=== PATIENT | male | born 1970 | race American Indian/Alaskan Native ===

== ENCOUNTER 2017-11-12 17:40 | Emergency (ER) | payer MEDICAID ==
[~2017-11-12] VITALS: Ht 170.2 cm; Wt 57.0 kg
[~2017-11-12 17:40] MED LIST: DOCU-28 PO; FLUC100T9 PO; FLUO40CA10 PO; FURO-150 PO; HYDR-3972 PO; INSU100I5 SQ; LEVO750T46 PO; LIDO700A35 TOP; METO50TA17 PO; NEOM14.216 TP; POTA10TA36 PO; TAMS0.4C32 PO
[2017-11-12 20:23] LABS: BASOPHILS % (AUTO) 0.2 % (0-1); EOSINOPHILS # (AUTO) 0.2 X10'3 (0-0.9); EOSINOPHILS % (AUTO) 2.7 % (0-6); HEMOGLOBIN 10.6 g/dl (14.0-17.9); LYMPHOCYTES # (AUTO) 1.2 X10'3 (1.1-4.8); LYMPHOCYTES % (AUTO) 18.2 % (21-51); MEAN CORPUSCULAR HEMOGLOBIN 27.7 PG (27.0-31.0); MEAN CORPUSCULAR HGB CONC 33.1 % (33.0-36.5); MEAN CORPUSCULAR VOLUME 83.8 FL (78-98); MEAN PLATELET VOLUME 5.9 FL (7.4-10.4); MONOCYTES # (AUTO) 0.5 X10'3 (0-0.9); NEUTROPHILS # (AUTO) 4.9 X10'3 (1.8-7.7); NEUTROPHILS % (AUTO) 71.9 % (42-75); PLATELET COUNT 244 X10'3 (140-440); RED BLOOD COUNT 3.81 X10'6 (4.70-6.10); RED CELL DISTRIBUTION WIDTH 16.2 % (11.5-14.5); WHITE BLOOD COUNT 6.8 X10'3 (4.5-11.0)
[2017-11-12 20:32] LABS: INR 1.1 INR; PARTIAL THROMBOPLASTIN TIME 31 SECONDS (22-32); PROTHROMBIN TIME 11.3 SECONDS (9.0-12.0)
[2017-11-12 20:36] LABS: ALANINE AMINOTRANSFERASE 48 U/L (12-78); ALBUMIN/GLOBULIN RATIO 0.3 (1.1-1.5); ALKALINE PHOSPHATASE 236 IU/L (46-116); ANION GAP 6 (8-16); ASPARTATE AMINO TRANSFERASE 46 U/L (10-37); BILIRUBIN,TOTAL 0.3 MG/DL (0.1-1.0); BLOOD UREA NITROGEN 23 MG/DL (7-18); BUN/CREATININE RATIO 6.9 (5.4-32.0); CALCIUM 7.9 MG/DL (8.5-10.1); CHLORIDE 104 MMOL/L (99-107); CREATININE 3.33 MG/DL (0.60-1.10); GLUCOSE 142 MG/DL (70-104); POTASSIUM 3.9 MMOL/L (3.5-5.1); SODIUM 135 MMOL/L (135-145); TOTAL CARBON DIOXIDE 25.4 MMOL/L (24-32); TOTAL PROTEIN 8.3 G/DL (6.4-8.2); eGFR 20 ML/MIN
[2017-11-12 20:44] LABS: CLARITY,URINE CLEAR (Clear); COLOR,URINE YELLOW (Yellow); GLUCOSE, URINE 250 mg/dl (Neg); KETONES,URINE NEGATIVE (Neg); LEUKOCYTE ESTERASE ,URINE NEGATIVE (Neg); NITRITES, URINE NEGATIVE (Neg); OCCULT BLOOD,URINE MODERATE (Neg); PROTEIN,URINE >=300 mg/dl (Neg); UROBILINOGEN,URINE 0.2 E.U/dL (0.2-1.0)
[2017-11-12 20:45] LABS: MAGNESIUM 2.1 MG/DL (1.5-2.4); TROPONIN I < 0.04 NG/ML (0.0-0.05)
[2017-11-12 20:46] LABS: UA COLLECTION TYPE FOLEY CATH
[2017-11-12 20:56] LABS: BACTERIA,URINE NONE SEEN /HPF (Neg); WBC,URINE 0-4 /HPF (0-4)
[2017-11-12 20:57] LABS: SQUAMOUS EPITHELIAL CELL,UR NONE SEEN /LPF (FEW); YEAST MODERATE /HPF (NEGATIVE)
[2017-11-12 21:38] VITALS: BP 161/85
== END 2017-11-12 21:40 | disposition home or self-care (01) ==
LOC: ER 17:40
DX: G89.29 Other chronic pain (principal); M79.604 Pain in right leg; E11.22 Type 2 diabetes mellitus with diabetic chronic kidney disease; I12.0 Hypertensive chronic kidney disease with stage 5 chronic kidney disease or end stage renal disease; N18.6 End stage renal disease; R31.9 Hematuria, unspecified; F15.10 Other stimulant abuse, uncomplicated; Z91.14 Patient's other noncompliance with medication regimen; Z99.2 Dependence on renal dialysis; Z86.19 Personal history of other infectious and parasitic diseases; Z90.49 Acquired absence of other specified parts of digestive tract; Z98.890 Other specified postprocedural states; Z79.4 Long term (current) use of insulin; Z79.899 Other long term (current) drug therapy; Z59.0 Homelessness; Z56.0 Unemployment, unspecified; Z88.8 Allergy status to other drugs, medicaments and biological substances
CPT/HCPCS: 36415; 71045; 80053; 81001; 82948; 83605; 83735; 83880; 84145; 84484; 85025; 85610; 85730; 87040; 93005; 99285

== ENCOUNTER 2017-11-24 09:53 | Inpatient (IN) | payer MEDICAID ==
[~2017-11-24] VITALS: Ht 170.2 cm; Wt 45.6 kg
[2017-11-24] MEDS ORDERED: ondansetron/PF 4mg/2ml inj IV ONE ×2 (12:45→17:10)
[2017-11-24] MEDS ORDERED: morphine 2 MG/ML inj. syringe IV ONE ×2 (12:45→17:15)
[2017-11-24 13:40] LABS: BASOPHILS % (AUTO) 0.4 % (0-1); EOSINOPHILS # (AUTO) 0.1 X10'3 (0-0.9); EOSINOPHILS % (AUTO) 1.9 % (0-6); HEMATOCRIT 34.6 % (42.0-52.0); HEMOGLOBIN 11.5 g/dl (14.0-17.9); LYMPHOCYTES # (AUTO) 1.8 X10'3 (1.1-4.8); LYMPHOCYTES % (AUTO) 22.6 % (21-51); MEAN CORPUSCULAR HEMOGLOBIN 27.5 PG (27.0-31.0); MEAN CORPUSCULAR HGB CONC 33.1 % (33.0-36.5); MEAN PLATELET VOLUME 6.5 FL (7.4-10.4); MONOCYTES # (AUTO) 0.4 X10'3 (0-0.9); MONOCYTES % (AUTO) 4.7 % (2-12); NEUTROPHILS # (AUTO) 5.6 X10'3 (1.8-7.7); NEUTROPHILS % (AUTO) 70.4 % (42-75); PLATELET COUNT 213 X10'3 (140-440); RED BLOOD COUNT 4.17 X10'6 (4.70-6.10); RED CELL DISTRIBUTION WIDTH 18.7 % (11.5-14.5); WHITE BLOOD COUNT 7.9 X10'3 (4.5-11.0)
[2017-11-24 14:06] LABS: ALANINE AMINOTRANSFERASE 44 U/L (12-78); ALBUMIN 1.9 G/DL (3.4-5.0); ALBUMIN/GLOBULIN RATIO 0.3 (1.1-1.5); ALKALINE PHOSPHATASE 244 IU/L (46-116); ANION GAP 4 (8-16); ASPARTATE AMINO TRANSFERASE 33 U/L (10-37); BILIRUBIN,TOTAL 0.3 MG/DL (0.1-1.0); BLOOD UREA NITROGEN 20 MG/DL (7-18); BUN/CREATININE RATIO 6.7 (5.4-32.0); CALCIUM 7.1 MG/DL (8.5-10.1); CHLORIDE 105 MMOL/L (99-107); GLUCOSE 263 MG/DL (70-104); LIPASE < 50 U/L (73-393); SODIUM 134 MMOL/L (135-145); TOTAL CARBON DIOXIDE 25.2 MMOL/L (24-32); TOTAL PROTEIN 7.9 G/DL (6.4-8.2); eGFR 23 ML/MIN
[2017-11-24 14:07] LABS: POTASSIUM 6.6 MMOL/L (3.5-5.1)
[2017-11-24] MEDS ORDERED: calcium gluconate inj. 1 GM in normal saline 100ml IV soln 90 ML IV ONE (14:30)
[2017-11-24] MEDS ORDERED: sodium polystyrene sulfonate 15gm/60ml oral suspension PO ONE (14:30)
[2017-11-24] MEDS ORDERED: dextrose 50%-water 50ml dispensing syringe IV ONE (14:30)
[2017-11-24] MEDS ORDERED: insulin regular, human 10 units/0.1 ml syringe IV ONE (14:30)
[2017-11-24] MEDS ORDERED: LORazepam 2 mg/ml vial IV ONE ×2 (15:05→18:10)
[2017-11-24 16:56] LABS: CLARITY,URINE SLIGHTLY CLOUDY (Clear); COLOR,URINE YELLOW (Yellow); GLUCOSE, URINE 250 mg/dl (Neg); KETONES,URINE NEGATIVE (Neg); LEUKOCYTE ESTERASE ,URINE NEGATIVE (Neg); NITRITES, URINE NEGATIVE (Neg); OCCULT BLOOD,URINE LARGE (Neg); PROTEIN,URINE >=300 mg/dl (Neg); UROBILINOGEN,URINE 0.2 E.U/dL (0.2-1.0)
[2017-11-24 16:58] LABS: UA COLLECTION TYPE FOLEY CATH
[2017-11-24 17:02] LABS: WBC,URINE 0-4 /HPF (0-4)
[2017-11-24 17:03] LABS: BACTERIA,URINE NONE SEEN /HPF (Neg); RBC,URINE 20-50 /HPF (0-2); SQUAMOUS EPITHELIAL CELL,UR FEW /LPF (FEW)
[2017-11-24] MEDS ORDERED: morphine 5 MG/ML injection IV ONE (17:10)
[2017-11-24 20:51] LABS: POTASSIUM 5.5 MMOL/L (3.5-5.1)
[2017-11-24] MEDS ORDERED: labetalol 20mg/4ml (5mg/ml) syringe IV ONE (22:45)
[2017-11-24] MEDS ORDERED: levoFLOXACIN-Levaquin 750MG/D5 150 ML IV STA (23:37)
[2017-11-24] MEDS ORDERED: vancomycin/NS 1 GM ADD-VANTAGE 250 ML IV ONE (23:40)
[2017-11-25] MEDS ORDERED: labetalol 5mg/ml 20ml inj. IV STA (00:09)
[2017-11-25 00:13] LABS: INR 1.2 INR; PARTIAL THROMBOPLASTIN TIME 31 SECONDS (22-32)
[2017-11-25] MEDS ORDERED: morphine 2 MG/ML inj. syringe IV PRN ×2 (00:35)
[2017-11-25 01:20] VITALS: BP 155/102
[2017-11-25 01:20] LABS: BASOPHILS % (AUTO) 0.5 % (0-1); EOSINOPHILS # (AUTO) 0.3 X10'3 (0-0.9); EOSINOPHILS % (AUTO) 4.1 % (0-6); HEMOGLOBIN 9.6 g/dl (14.0-17.9); LYMPHOCYTES # (AUTO) 2.3 X10'3 (1.1-4.8); LYMPHOCYTES % (AUTO) 32.6 % (21-51); MEAN CORPUSCULAR HEMOGLOBIN 28.2 PG (27.0-31.0); MEAN CORPUSCULAR HGB CONC 34.2 % (33.0-36.5); MEAN CORPUSCULAR VOLUME 82.5 FL (78-98); MEAN PLATELET VOLUME 6.7 FL (7.4-10.4); MONOCYTES # (AUTO) 0.7 X10'3 (0-0.9); NEUTROPHILS # (AUTO) 3.6 X10'3 (1.8-7.7); NEUTROPHILS % (AUTO) 52.8 % (42-75); PLATELET COUNT 164 X10'3 (140-440); RED BLOOD COUNT 3.39 X10'6 (4.70-6.10); RED CELL DISTRIBUTION WIDTH 19.3 % (11.5-14.5); WHITE BLOOD COUNT 6.9 X10'3 (4.5-11.0)
[2017-11-25 01:31] LABS: ALANINE AMINOTRANSFERASE 52 U/L (12-78); ALBUMIN 1.5 G/DL (3.4-5.0); ALBUMIN/GLOBULIN RATIO 0.3 (1.1-1.5); ALKALINE PHOSPHATASE 227 IU/L (46-116); ANION GAP 4 (8-16); ASPARTATE AMINO TRANSFERASE 73 U/L (10-37); BILIRUBIN,TOTAL 0.2 MG/DL (0.1-1.0); BLOOD UREA NITROGEN 21 MG/DL (7-18); BUN/CREATININE RATIO 6.8 (5.4-32.0); CHLORIDE 108 MMOL/L (99-107); GLUCOSE 93 MG/DL (70-104); MAGNESIUM 1.7 MG/DL (1.5-2.4); POTASSIUM 5.5 MMOL/L (3.5-5.1); SODIUM 138 MMOL/L (135-145); TOTAL PROTEIN 6.5 G/DL (6.4-8.2); eGFR 22 ML/MIN
[2017-11-25 06:00] VITALS: BP 126/87
[2017-11-25] MEDS: potassium chloride 10mEq ER tablet PO SCH (07:03)
[2017-11-25] MEDS: VANCOMYCIN LEVEL IV SCH (08:00)
[2017-11-25] MEDS: metoprolol tartrate 50mg tablet PO SCH ×2 (08:00→20:28)
[2017-11-25] MEDS ORDERED: furosemide 20MG tablet PO SCH (08:00)
[2017-11-25] MEDS: docusate sod 100mg capsule PO SCH ×2 (08:00→20:28)
[2017-11-25] MEDS ORDERED: vancomycin/NS 1 GM ADD-VANTAGE 250 ML X 1 DOSE IV PRN (08:00)
[2017-11-25] MEDS: neomy sulf/bacitrac zn/polymixin b oint 14.2 gm tube TP SCH ×2 (08:00→20:00)
[2017-11-25] MEDS ORDERED: dextrose 50%-water 50ml dispensing syringe IV PRN ×2 (08:10)
[2017-11-25] MEDS ORDERED: glucagon, human recombinant 1mg kit SUBCUT PRN (08:10)
[2017-11-25] MEDS ORDERED: dextrose ORAL solution 15 GM/59 ML bottle PO PRN (08:10)
[2017-11-25] MEDS: heparin, porcine 5000 units/ml vial SQ SCH ×2 (08:16→20:27)
[2017-11-25] MEDS: LIDOcaine 5% patch TP SCH (08:21)
[2017-11-25 09:02] LABS: VANCOMYCIN,RANDOM 7.2 UG/ML
[2017-11-25] MEDS: insulin Lispro (HumaLOG) vial - multi-dose SQ SCH ×2 (09:11→13:31)
[2017-11-25] MEDS ORDERED: vancomycin/NS 1 GM ADD-VANTAGE 250 ML X 1 DOSE IV ONE (09:45)
[2017-11-25] MEDS: HYDROmorphone inj. 0.5 MG/0.5 ML DISP.SYRIN IV PRN ×2 (10:45→14:45)
[2017-11-25 11:00] VITALS: BP 137/93
[2017-11-25] MEDS ORDERED: heparin 1,000unit/ml 10ml vial 10 ML IV ONE (11:07)
[2017-11-25] MEDS ORDERED: epoetin 20,000 units/ml inj IV ONE (11:10)
[2017-11-25] MEDS ORDERED: heparin 1,000 units/ml 10ml inj IV ONE (11:10)
[2017-11-25] MEDS ORDERED: albumin (human) 25% 100ml IV 100 ML IV PRN (11:10)
[2017-11-25] MEDS ORDERED: heparin 1,000 units/ml 10ml inj HE ONE ×2 (11:15)
[2017-11-25] MEDS ORDERED: INSU100I5 SQ (12:12)
[2017-11-25 15:00] VITALS: BP 121/88
[2017-11-25] MEDS: dextrose ORAL solution 15 GM/59 ML bottle PO PRN ×2 (17:06→17:31)
[2017-11-25 18:30] VITALS: BP 164/93
[2017-11-25] MEDS: morphine 2 MG/ML inj. syringe IV PRN ×2 (18:49→23:03)
[2017-11-25] MEDS: tamsulosin 0.4mg capsule PO SCH (20:28)
[2017-11-25] MEDS: insulin glargine (Lantus) pen - multi-dose SQ SCH (21:00)
[2017-11-25] MEDS: diatr meglu/diatrizoate 30ml oral sol.-(3 dose) bottle PO SCH (21:57)
[2017-11-25 22:00] VITALS: BP 149/85
[2017-11-26 02:00] VITALS: BP 156/94
[2017-11-26] MEDS: VANCOMYCIN LEVEL IV SCH (03:00)
[2017-11-26] MEDS: morphine 8mg/ml inj. syringe IV PRN ×3 (04:54→17:24)
[2017-11-26 06:00] VITALS: BP 152/88
[2017-11-26 06:10] LABS: BASOPHILS % (AUTO) 0.4 % (0-1); EOSINOPHILS # (AUTO) 0.3 X10'3 (0-0.9); HEMATOCRIT 25.4 % (42.0-52.0); HEMOGLOBIN 8.7 g/dl (14.0-17.9); LYMPHOCYTES % (AUTO) 29.3 % (21-51); MEAN CORPUSCULAR HEMOGLOBIN 28.1 PG (27.0-31.0); MEAN CORPUSCULAR HGB CONC 34.2 % (33.0-36.5); MEAN CORPUSCULAR VOLUME 81.9 FL (78-98); MEAN PLATELET VOLUME 6.3 FL (7.4-10.4); MONOCYTES # (AUTO) 0.8 X10'3 (0-0.9); MONOCYTES % (AUTO) 12.3 % (2-12); NEUTROPHILS # (AUTO) 3.6 X10'3 (1.8-7.7); PLATELET COUNT 159 X10'3 (140-440); RED CELL DISTRIBUTION WIDTH 20.1 % (11.5-14.5); WHITE BLOOD COUNT 6.9 X10'3 (4.5-11.0)
[2017-11-26 06:35] LABS: GLUCOSE 155 MG/DL (70-104); SODIUM 137 MMOL/L (135-145)
[2017-11-26 06:36] LABS: ALANINE AMINOTRANSFERASE 34 U/L (12-78); ALBUMIN 1.4 G/DL (3.4-5.0); ALBUMIN/GLOBULIN RATIO 0.3 (1.1-1.5); ALKALINE PHOSPHATASE 193 IU/L (46-116); ANION GAP 4 (8-16); ASPARTATE AMINO TRANSFERASE 28 U/L (10-37); BILIRUBIN,TOTAL 0.2 MG/DL (0.1-1.0); BLOOD UREA NITROGEN 11 MG/DL (7-18); BUN/CREATININE RATIO 4.8 (5.4-32.0); CALCIUM 6.6 MG/DL (8.5-10.1); CHLORIDE 105 MMOL/L (99-107); MAGNESIUM 1.5 MG/DL (1.5-2.4); POTASSIUM 4.2 MMOL/L (3.5-5.1); TOTAL CARBON DIOXIDE 27.9 MMOL/L (24-32); VANCOMYCIN,RANDOM 24.6 UG/ML; eGFR 31 ML/MIN
[2017-11-26] MEDS: diatr meglu/diatrizoate 30ml oral sol.-(3 dose) bottle PO SCH ×2 (07:57→21:00)
[2017-11-26] MEDS: heparin, porcine 5000 units/ml vial SQ SCH ×2 (07:58→21:46)
[2017-11-26] MEDS: docusate sod 100mg capsule PO SCH ×2 (08:00→21:46)
[2017-11-26] MEDS: metoprolol tartrate 50mg tablet PO SCH ×2 (08:01→21:46)
[2017-11-26] MEDS: neomy sulf/bacitrac zn/polymixin b oint 14.2 gm tube TP SCH ×2 (08:01→20:00)
[2017-11-26] MEDS: potassium chloride 10mEq ER tablet PO SCH (08:01)
[2017-11-26] MEDS: LIDOcaine 5% patch TP SCH (08:02)
[2017-11-26] MEDS: LACTOBACILLUS RHAMNOSUS GG 15 billion unit sprinkle caps PO SCH (08:03)
[2017-11-26] MEDS: furosemide 20MG tablet PO SCH (08:13)
[2017-11-26] MEDS ORDERED: iohexol 300mg/ml 100ml inj. ONE (09:07)
[2017-11-26 11:00] VITALS: BP 145/90
[2017-11-26 15:00] VITALS: BP 146/97
[2017-11-26 19:00] VITALS: BP 149/100
[2017-11-26] MEDS: insulin glargine (Lantus) pen - multi-dose SQ SCH (21:00)
[2017-11-26] MEDS: tamsulosin 0.4mg capsule PO SCH (21:46)
[2017-11-26] MEDS: levoFLOXACIN-Levaquin 500mg/D5 100 ML IV SCH (21:48)
[2017-11-26 23:00] VITALS: BP 156/95
[2017-11-27 03:00] VITALS: BP 168/97
[2017-11-27] MEDS: VANCOMYCIN LEVEL IV SCH (03:00)
[2017-11-27] MEDS ORDERED: morphine 2 MG/ML inj. syringe IV ONE (03:35)
[2017-11-27 06:00] VITALS: BP 143/90
[2017-11-27] MEDS: LACTOBACILLUS RHAMNOSUS GG 15 billion unit sprinkle caps PO SCH (07:31)
[2017-11-27] MEDS: potassium chloride 10mEq ER tablet PO SCH (07:31)
[2017-11-27] MEDS: metoprolol tartrate 50mg tablet PO SCH ×2 (07:31→19:43)
[2017-11-27] MEDS: heparin, porcine 5000 units/ml vial SQ SCH ×2 (07:31→19:43)
[2017-11-27] MEDS: furosemide 20MG tablet PO SCH (07:31)
[2017-11-27] MEDS: LIDOcaine 5% patch TP SCH (07:32)
[2017-11-27] MEDS: neomy sulf/bacitrac zn/polymixin b oint 14.2 gm tube TP SCH ×2 (07:33→19:43)
[2017-11-27] MEDS: docusate sod 100mg capsule PO SCH ×2 (07:41→19:44)
[2017-11-27] MEDS ORDERED: heparin 1,000unit/ml 10ml vial 10 ML IV ONE (08:32)
[2017-11-27] MEDS ORDERED: epoetin 20,000 units/ml inj IV ONE (08:35)
[2017-11-27] MEDS ORDERED: albumin (human) 25% 100ml IV 100 ML IV PRN (08:35)
[2017-11-27] MEDS ORDERED: heparin 1,000 units/ml 10ml inj IV ONE (08:35)
[2017-11-27] MEDS ORDERED: heparin 1,000 units/ml 10ml inj HE ONE ×2 (08:40)
[2017-11-27] MEDS: insulin Lispro (HumaLOG) vial - multi-dose SQ SCH (09:39)
[2017-11-27 11:00] VITALS: BP 131/91
[2017-11-27] MEDS: dextrose ORAL solution 15 GM/59 ML bottle PO PRN (12:00)
[2017-11-27 12:36] LABS: BASOPHILS % (AUTO) 0.6 % (0-1); EOSINOPHILS # (AUTO) 0.5 X10'3 (0-0.9); EOSINOPHILS % (AUTO) 6.6 % (0-6); HEMATOCRIT 27.9 % (42.0-52.0); HEMOGLOBIN 9.5 g/dl (14.0-17.9); LYMPHOCYTES # (AUTO) 1.7 X10'3 (1.1-4.8); LYMPHOCYTES % (AUTO) 24.4 % (21-51); MEAN CORPUSCULAR HEMOGLOBIN 28.1 PG (27.0-31.0); MEAN CORPUSCULAR HGB CONC 33.9 % (33.0-36.5); MEAN CORPUSCULAR VOLUME 82.8 FL (78-98); MEAN PLATELET VOLUME 6.7 FL (7.4-10.4); MONOCYTES # (AUTO) 0.7 X10'3 (0-0.9); MONOCYTES % (AUTO) 10.5 % (2-12); NEUTROPHILS # (AUTO) 4.1 X10'3 (1.8-7.7); NEUTROPHILS % (AUTO) 57.9 % (42-75); PLATELET COUNT 163 X10'3 (140-440); RED BLOOD COUNT 3.37 X10'6 (4.70-6.10); RED CELL DISTRIBUTION WIDTH 19.9 % (11.5-14.5); WHITE BLOOD COUNT 7.1 X10'3 (4.5-11.0)
[2017-11-27 12:44] LABS: ALANINE AMINOTRANSFERASE 33 U/L (12-78); ALBUMIN 1.5 G/DL (3.4-5.0); ALBUMIN/GLOBULIN RATIO 0.3 (1.1-1.5); ALKALINE PHOSPHATASE 231 IU/L (46-116); ANION GAP 3 (8-16); ASPARTATE AMINO TRANSFERASE 29 U/L (10-37); BILIRUBIN,TOTAL 0.2 MG/DL (0.1-1.0); BLOOD UREA NITROGEN 22 MG/DL (7-18); BUN/CREATININE RATIO 6.9 (5.4-32.0); CHLORIDE 103 MMOL/L (99-107); MAGNESIUM 1.5 MG/DL (1.5-2.4); POTASSIUM 4.7 MMOL/L (3.5-5.1); SODIUM 136 MMOL/L (135-145); TOTAL CARBON DIOXIDE 29.9 MMOL/L (24-32); TOTAL PROTEIN 6.6 G/DL (6.4-8.2); VANCOMYCIN,RANDOM 20.6 UG/ML; eGFR 21 ML/MIN
[2017-11-27 12:46] LABS: GLUCOSE 39 MG/DL (70-104)
[2017-11-27 13:24] LABS: HBSAG SCREEN Negative (Negative)
[2017-11-27] MEDS: morphine 2 MG/ML inj. syringe IV PRN ×2 (13:52→19:44)
[2017-11-27 15:00] VITALS: BP 146/89
[2017-11-27 19:00] VITALS: BP 157/83
[2017-11-27] MEDS: tamsulosin 0.4mg capsule PO SCH (19:43)
[2017-11-27] MEDS: insulin glargine (Lantus) pen - multi-dose SQ SCH (21:00)
[2017-11-27 23:00] VITALS: BP 126/71
[2017-11-28 03:00] VITALS: BP 153/55
[2017-11-28] MEDS: VANCOMYCIN LEVEL IV SCH (03:00)
[2017-11-28 06:00] VITALS: BP 141/75
[2017-11-28 06:39] LABS: BASOPHILS % (AUTO) 0.4 % (0-1); EOSINOPHILS # (AUTO) 0.4 X10'3 (0-0.9); EOSINOPHILS % (AUTO) 5.2 % (0-6); HEMATOCRIT 26.7 % (42.0-52.0); LYMPHOCYTES # (AUTO) 2.2 X10'3 (1.1-4.8); LYMPHOCYTES % (AUTO) 26.8 % (21-51); MEAN CORPUSCULAR HEMOGLOBIN 27.7 PG (27.0-31.0); MEAN CORPUSCULAR HGB CONC 33.6 % (33.0-36.5); MEAN CORPUSCULAR VOLUME 82.5 FL (78-98); MEAN PLATELET VOLUME 7.1 FL (7.4-10.4); MONOCYTES # (AUTO) 1.1 X10'3 (0-0.9); MONOCYTES % (AUTO) 12.9 % (2-12); NEUTROPHILS # (AUTO) 4.5 X10'3 (1.8-7.7); NEUTROPHILS % (AUTO) 54.7 % (42-75); PLATELET COUNT 153 X10'3 (140-440); RED BLOOD COUNT 3.24 X10'6 (4.70-6.10); RED CELL DISTRIBUTION WIDTH 19.6 % (11.5-14.5); WHITE BLOOD COUNT 8.3 X10'3 (4.5-11.0)
[2017-11-28 07:14] LABS: ALANINE AMINOTRANSFERASE 29 U/L (12-78); ALBUMIN 1.4 G/DL (3.4-5.0); ALBUMIN/GLOBULIN RATIO 0.3 (1.1-1.5); ALKALINE PHOSPHATASE 192 IU/L (46-116); ANION GAP 4 (8-16); ASPARTATE AMINO TRANSFERASE 23 U/L (10-37); BILIRUBIN,TOTAL 0.2 MG/DL (0.1-1.0); BLOOD UREA NITROGEN 19 MG/DL (7-18); BUN/CREATININE RATIO 6.6 (5.4-32.0); CALCIUM 6.8 MG/DL (8.5-10.1); CHLORIDE 102 MMOL/L (99-107); GLUCOSE 186 MG/DL (70-104); MAGNESIUM 1.6 MG/DL (1.5-2.4); POTASSIUM 4.7 MMOL/L (3.5-5.1); SODIUM 134 MMOL/L (135-145); TOTAL CARBON DIOXIDE 27.9 MMOL/L (24-32); TOTAL PROTEIN 6.2 G/DL (6.4-8.2); VANCOMYCIN,RANDOM 14.6 UG/ML; eGFR 24 ML/MIN
[2017-11-28] MEDS: LIDOcaine 5% patch TP SCH (07:38)
[2017-11-28] MEDS: metoprolol tartrate 50mg tablet PO SCH ×2 (07:38→19:27)
[2017-11-28] MEDS: furosemide 20MG tablet PO SCH (07:38)
[2017-11-28] MEDS: heparin, porcine 5000 units/ml vial SQ SCH ×2 (07:38→19:27)
[2017-11-28] MEDS: docusate sod 100mg capsule PO SCH ×2 (07:39→19:27)
[2017-11-28] MEDS: potassium chloride 10mEq ER tablet PO SCH (07:39)
[2017-11-28] MEDS: neomy sulf/bacitrac zn/polymixin b oint 14.2 gm tube TP SCH ×2 (07:48→19:28)
[2017-11-28] MEDS: LACTOBACILLUS RHAMNOSUS GG 15 billion unit sprinkle caps PO SCH (07:48)
[2017-11-28] MEDS: morphine 2 MG/ML inj. syringe IV PRN ×4 (07:49→22:03)
[2017-11-28] MEDS ORDERED: vancomycin/NS 1 GM ADD-VANTAGE 250 ML X 1 DOSE IV ONE (10:55)
[2017-11-28 11:00] VITALS: BP 150/84
[2017-11-28] MEDS: insulin Lispro (HumaLOG) vial - multi-dose SQ SCH ×2 (14:28→19:35)
[2017-11-28 15:00] VITALS: BP 146/83
[2017-11-28 19:00] VITALS: BP 136/86
[2017-11-28] MEDS: tamsulosin 0.4mg capsule PO SCH (19:27)
[2017-11-28] MEDS: insulin glargine (Lantus) pen - multi-dose SQ SCH (19:43)
[2017-11-28] MEDS: levoFLOXACIN-Levaquin 500mg/D5 100 ML IV SCH (22:03)
[2017-11-28 23:00] VITALS: BP 136/87
[2017-11-29] MEDS: morphine 2 MG/ML inj. syringe IV PRN ×4 (02:04→20:09)
[2017-11-29 03:00] VITALS: BP 154/86
[2017-11-29] MEDS: VANCOMYCIN LEVEL IV SCH (03:00)
[2017-11-29 06:00] VITALS: BP 139/91
[2017-11-29 07:13] LABS: BASOPHILS % (AUTO) 0.5 % (0-1); EOSINOPHILS # (AUTO) 0.5 X10'3 (0-0.9); EOSINOPHILS % (AUTO) 6.8 % (0-6); HEMATOCRIT 25.5 % (42.0-52.0); HEMOGLOBIN 8.6 g/dl (14.0-17.9); LYMPHOCYTES # (AUTO) 2.2 X10'3 (1.1-4.8); LYMPHOCYTES % (AUTO) 30.1 % (21-51); MEAN CORPUSCULAR HEMOGLOBIN 27.7 PG (27.0-31.0); MEAN CORPUSCULAR HGB CONC 33.6 % (33.0-36.5); MEAN CORPUSCULAR VOLUME 82.5 FL (78-98); MONOCYTES # (AUTO) 0.7 X10'3 (0-0.9); MONOCYTES % (AUTO) 10.1 % (2-12); NEUTROPHILS # (AUTO) 3.9 X10'3 (1.8-7.7); NEUTROPHILS % (AUTO) 52.5 % (42-75); PLATELET COUNT 158 X10'3 (140-440); RED CELL DISTRIBUTION WIDTH 19.2 % (11.5-14.5); WHITE BLOOD COUNT 7.3 X10'3 (4.5-11.0)
[2017-11-29 07:34] LABS: ALANINE AMINOTRANSFERASE 25 U/L (12-78); ALBUMIN 1.4 G/DL (3.4-5.0); ALBUMIN/GLOBULIN RATIO 0.3 (1.1-1.5); ALKALINE PHOSPHATASE 168 IU/L (46-116); ANION GAP 6 (8-16); ASPARTATE AMINO TRANSFERASE 22 U/L (10-37); BILIRUBIN,TOTAL 0.2 MG/DL (0.1-1.0); BLOOD UREA NITROGEN 29 MG/DL (7-18); BUN/CREATININE RATIO 8.8 (5.4-32.0); CALCIUM 7.2 MG/DL (8.5-10.1); CHLORIDE 100 MMOL/L (99-107); GLUCOSE 273 MG/DL (70-104); MAGNESIUM 1.5 MG/DL (1.5-2.4); POTASSIUM 5.2 MMOL/L (3.5-5.1); SODIUM 131 MMOL/L (135-145); TOTAL CARBON DIOXIDE 24.9 MMOL/L (24-32); TOTAL PROTEIN 6.1 G/DL (6.4-8.2); VANCOMYCIN,RANDOM 25.7 UG/ML; eGFR 20 ML/MIN
[2017-11-29] MEDS: LIDOcaine 5% patch TP SCH (07:44)
[2017-11-29] MEDS: LACTOBACILLUS RHAMNOSUS GG 15 billion unit sprinkle caps PO SCH (07:45)
[2017-11-29] MEDS: furosemide 20MG tablet PO SCH (07:45)
[2017-11-29] MEDS: docusate sod 100mg capsule PO SCH ×2 (07:45→19:12)
[2017-11-29] MEDS: potassium chloride 10mEq ER tablet PO SCH (07:45)
[2017-11-29] MEDS: metoprolol tartrate 50mg tablet PO SCH ×2 (07:47→19:12)
[2017-11-29] MEDS: heparin, porcine 5000 units/ml vial SQ SCH ×2 (07:47→19:11)
[2017-11-29] MEDS: neomy sulf/bacitrac zn/polymixin b oint 14.2 gm tube TP SCH ×2 (07:48→19:21)
[2017-11-29] MEDS: insulin Lispro (HumaLOG) vial - multi-dose SQ SCH ×2 (09:23→19:16)
[2017-11-29 11:00] VITALS: BP 122/84
[2017-11-29 15:00] VITALS: BP 159/92
[2017-11-29 19:00] VITALS: BP 161/88
[2017-11-29] MEDS: tamsulosin 0.4mg capsule PO SCH (19:12)
[2017-11-29] MEDS: insulin glargine (Lantus) pen - multi-dose SQ SCH (21:00)
[2017-11-29] MEDS ORDERED: insulin glargine (Lantus) pen - multi-dose SQ ONE (21:10)
[2017-11-29 23:00] VITALS: BP 125/83
[2017-11-30] MEDS: morphine 2 MG/ML inj. syringe IV PRN ×5 (00:16→22:18)
[2017-11-30 03:00] VITALS: BP 151/83
[2017-11-30] MEDS: VANCOMYCIN LEVEL IV SCH (03:00)
[2017-11-30 06:00] VITALS: BP 156/45
[2017-11-30] MEDS: docusate sod 100mg capsule PO SCH ×2 (08:00→20:00)
[2017-11-30] MEDS ORDERED: epoetin 20,000 units/ml inj IV ONE (08:00)
[2017-11-30] MEDS ORDERED: heparin 1,000unit/ml 10ml vial 10 ML IV ONE (08:00)
[2017-11-30] MEDS ORDERED: heparin 1,000 units/ml 10ml inj HE ONE ×2 (08:00)
[2017-11-30] MEDS ORDERED: normal saline 1000ml 250 ML IV PRN (08:00)
[2017-11-30] MEDS: metoprolol tartrate 50mg tablet PO SCH ×2 (08:18→20:59)
[2017-11-30] MEDS: LACTOBACILLUS RHAMNOSUS GG 15 billion unit sprinkle caps PO SCH (08:18)
[2017-11-30] MEDS: furosemide 20MG tablet PO SCH (08:18)
[2017-11-30] MEDS: heparin, porcine 5000 units/ml vial SQ SCH ×2 (08:19→20:59)
[2017-11-30] MEDS: neomy sulf/bacitrac zn/polymixin b oint 14.2 gm tube TP SCH ×2 (08:20→20:00)
[2017-11-30] MEDS: LIDOcaine 5% patch TP SCH (08:20)
[2017-11-30 11:00] VITALS: BP 146/87
[2017-11-30] MEDS: levoFLOXACIN 500mg tablet PO SCH (12:24)
[2017-11-30] MEDS: insulin Lispro (HumaLOG) vial - multi-dose SQ SCH (13:33)
[2017-11-30 15:00] VITALS: BP 108/87
[2017-11-30 18:00] VITALS: BP 100/66
[2017-11-30] MEDS: tamsulosin 0.4mg capsule PO SCH (20:58)
[2017-11-30] MEDS: insulin glargine (Lantus) pen - multi-dose SQ SCH (21:00)
[2017-11-30 22:00] VITALS: BP 155/82
[2017-12-01 02:00] VITALS: BP 152/76
[2017-12-01] MEDS: VANCOMYCIN LEVEL IV SCH (03:00)
[2017-12-01] MEDS: morphine 2 MG/ML inj. syringe IV PRN (03:59)
[2017-12-01 06:00] VITALS: BP 161/90
[2017-12-01] MEDS ORDERED: HYDROmorphone inj. 0.5 MG/0.5 ML DISP.SYRIN IV PRN (07:36)
[2017-12-01] MEDS: furosemide 20MG tablet PO SCH (07:54)
[2017-12-01] MEDS: LACTOBACILLUS RHAMNOSUS GG 15 billion unit sprinkle caps PO SCH (07:54)
[2017-12-01] MEDS: metoprolol tartrate 50mg tablet PO SCH ×2 (07:54→20:04)
[2017-12-01] MEDS: LIDOcaine 5% patch TP SCH (07:55)
[2017-12-01] MEDS: heparin, porcine 5000 units/ml vial SQ SCH ×2 (07:58→20:05)
[2017-12-01] MEDS: docusate sod 100mg capsule PO SCH ×2 (07:58→20:00)
[2017-12-01] MEDS: neomy sulf/bacitrac zn/polymixin b oint 14.2 gm tube TP SCH ×2 (07:59→20:06)
[2017-12-01] MEDS ORDERED: FURO20TA4 PO (08:52)
[2017-12-01] MEDS: insulin Lispro (HumaLOG) vial - multi-dose SQ SCH ×3 (09:11→20:27)
[2017-12-01] MEDS: HYDROmorphone 2mg/ml vial IV PRN ×3 (09:45→20:12)
[2017-12-01 11:00] VITALS: BP 130/83
[2017-12-01 15:00] VITALS: BP 109/74
[2017-12-01 18:30] VITALS: BP 149/92
[2017-12-01] MEDS: tamsulosin 0.4mg capsule PO SCH (20:29)
[2017-12-01] MEDS: insulin glargine (Lantus) pen - multi-dose SQ SCH (20:32)
[2017-12-01 23:00] VITALS: BP 126/79
[2017-12-02] MEDS: HYDROmorphone 2mg/ml vial IV PRN ×5 (01:02→20:32)
[2017-12-02 03:00] VITALS: BP 179/98
[2017-12-02 07:00] VITALS: BP 173/104
[2017-12-02] MEDS: furosemide 20MG tablet PO SCH (07:16)
[2017-12-02] MEDS: metoprolol tartrate 50mg tablet PO SCH ×2 (07:16→20:24)
[2017-12-02] MEDS: docusate sod 100mg capsule PO SCH ×2 (07:16→20:00)
[2017-12-02] MEDS: LIDOcaine 5% patch TP SCH (07:17)
[2017-12-02] MEDS ORDERED: heparin 1,000unit/ml 10ml vial 10 ML IV ONE (07:18)
[2017-12-02] MEDS: LACTOBACILLUS RHAMNOSUS GG 15 billion unit sprinkle caps PO SCH (07:18)
[2017-12-02] MEDS ORDERED: albumin (human) 25% 100ml IV 100 ML IV PRN (07:20)
[2017-12-02] MEDS ORDERED: epoetin 20,000 units/ml inj IV ONE (07:20)
[2017-12-02] MEDS ORDERED: heparin 1,000 units/ml 10ml inj IV ONE (07:20)
[2017-12-02] MEDS ORDERED: heparin 1,000 units/ml 10ml inj HE ONE ×2 (07:25)
[2017-12-02] MEDS: heparin, porcine 5000 units/ml vial SQ SCH ×2 (07:46→20:25)
[2017-12-02] MEDS: insulin Lispro (HumaLOG) vial - multi-dose SQ SCH ×3 (08:16→21:18)
[2017-12-02] MEDS: neomy sulf/bacitrac zn/polymixin b oint 14.2 gm tube TP SCH ×2 (08:25→20:00)
[2017-12-02 08:54] LABS: BASOPHILS % (AUTO) 0.4 % (0-1); EOSINOPHILS # (AUTO) 0.4 X10'3 (0-0.9); HEMATOCRIT 27.3 % (42.0-52.0); HEMOGLOBIN 9.1 g/dl (14.0-17.9); LYMPHOCYTES # (AUTO) 1.7 X10'3 (1.1-4.8); LYMPHOCYTES % (AUTO) 26.6 % (21-51); MEAN CORPUSCULAR HEMOGLOBIN 27.6 PG (27.0-31.0); MEAN CORPUSCULAR HGB CONC 33.4 % (33.0-36.5); MEAN CORPUSCULAR VOLUME 82.6 FL (78-98); MEAN PLATELET VOLUME 6.5 FL (7.4-10.4); MONOCYTES # (AUTO) 0.7 X10'3 (0-0.9); MONOCYTES % (AUTO) 11.9 % (2-12); NEUTROPHILS # (AUTO) 3.4 X10'3 (1.8-7.7); NEUTROPHILS % (AUTO) 55.1 % (42-75); PLATELET COUNT 176 X10'3 (140-440); RED CELL DISTRIBUTION WIDTH 18.8 % (11.5-14.5); WHITE BLOOD COUNT 6.2 X10'3 (4.5-11.0)
[2017-12-02 09:09] LABS: ALANINE AMINOTRANSFERASE 100 U/L (12-78); ALBUMIN 1.5 G/DL (3.4-5.0); ALBUMIN/GLOBULIN RATIO 0.3 (1.1-1.5); ALKALINE PHOSPHATASE 169 IU/L (46-116); ANION GAP 5 (8-16); ASPARTATE AMINO TRANSFERASE 194 U/L (10-37); BILIRUBIN,TOTAL 0.3 MG/DL (0.1-1.0); BLOOD UREA NITROGEN 37 MG/DL (7-18); BUN/CREATININE RATIO 11.2 (5.4-32.0); CALCIUM 7.6 MG/DL (8.5-10.1); CHLORIDE 101 MMOL/L (99-107); GLUCOSE 266 MG/DL (70-104); MAGNESIUM 1.6 MG/DL (1.5-2.4); POTASSIUM 4.9 MMOL/L (3.5-5.1); SODIUM 132 MMOL/L (135-145); TOTAL CARBON DIOXIDE 25.9 MMOL/L (24-32); TOTAL PROTEIN 6.4 G/DL (6.4-8.2); eGFR 20 ML/MIN
[2017-12-02 11:00] VITALS: BP 121/79
[2017-12-02] MEDS: levoFLOXACIN 500mg tablet PO SCH (12:15)
[2017-12-02 15:00] VITALS: BP 154/94
[2017-12-02 19:00] VITALS: BP 160/82
[2017-12-02] MEDS ORDERED: proCHLORperazine 10 MG/2 ml inj IV PRN (19:10)
[2017-12-02] MEDS: tamsulosin 0.4mg capsule PO SCH (20:24)
[2017-12-02] MEDS: insulin glargine (Lantus) pen - multi-dose SQ SCH ×2 (21:00→22:01)
[2017-12-02 23:00] VITALS: BP 154/89
[2017-12-03 00:56] VITALS: BP 154/89
[2017-12-03] MEDS ORDERED: HYDROcodone/acetaminophen 5mg/325mg tablet PO ONE (02:30)
[2017-12-03 03:00] VITALS: BP 171/97
[2017-12-03 06:00] VITALS: BP 159/98
[2017-12-03] MEDS: insulin Lispro (HumaLOG) vial - multi-dose SQ SCH (07:47)
[2017-12-03] MEDS: metoprolol tartrate 50mg tablet PO SCH (07:51)
[2017-12-03] MEDS: heparin, porcine 5000 units/ml vial SQ SCH (07:51)
[2017-12-03] MEDS: LACTOBACILLUS RHAMNOSUS GG 15 billion unit sprinkle caps PO SCH (07:51)
[2017-12-03] MEDS: furosemide 20MG tablet PO SCH (07:51)
[2017-12-03] MEDS: docusate sod 100mg capsule PO SCH (07:51)
[2017-12-03] MEDS: neomy sulf/bacitrac zn/polymixin b oint 14.2 gm tube TP SCH (07:52)
[2017-12-03] MEDS: LIDOcaine 5% patch TP SCH (07:52)
[2017-12-03] MEDS: HYDROcodone/acetaminophen 10/325mg tab PO PRN ×2 (08:40→14:25)
[2017-12-03 11:00] VITALS: BP 112/77
[2017-12-03 15:00] VITALS: BP 159/97
== END 2017-12-03 16:19 | disposition home health service (06) | DRG 342 ==
LOC: ER 09:54 → ED HOLD 23:42 → PCU 3S 11-25 01:34
PROVIDERS: ADMIT Internal Medicine Critical Care Medicine; ATTEND Internal Medicine Critical Care Medicine
PROC: 5A1D70Z Performance of Urinary Filtration, Intermittent, Less than 6 Hours Per Day (ICD-10-PCS; 2017-11-25)
PROC: BW211ZZ Computerized Tomography (CT Scan) of Abdomen and Pelvis using Low Osmolar Contrast (ICD-10-PCS; principal; 2017-11-26)
PROC: 5A1D70Z Performance of Urinary Filtration, Intermittent, Less than 6 Hours Per Day (ICD-10-PCS; 2017-11-27)
PROC: 5A1D70Z Performance of Urinary Filtration, Intermittent, Less than 6 Hours Per Day (ICD-10-PCS; 2017-11-30)
PROC: 5A1D70Z Performance of Urinary Filtration, Intermittent, Less than 6 Hours Per Day (ICD-10-PCS; 2017-12-02)
DX: S92.001A Unspecified fracture of right calcaneus, initial encounter for closed fracture (principal); I13.0 Hypertensive heart and chronic kidney disease with heart failure and stage 1 through stage 4 chronic kidney disease, or unspecified chronic kidney disease; N18.6 End stage renal disease; E87.5 Hyperkalemia; K86.1 Other chronic pancreatitis; S92.002A Unspecified fracture of left calcaneus, initial encounter for closed fracture; M85.80 Other specified disorders of bone density and structure, unspecified site; R33.9 Retention of urine, unspecified; B18.2 Chronic viral hepatitis C; F15.90 Other stimulant use, unspecified, uncomplicated; E11.22 Type 2 diabetes mellitus with diabetic chronic kidney disease; G89.29 Other chronic pain; M54.5 Low back pain; W01.0XXA Fall on same level from slipping, tripping and stumbling without subsequent striking against object, initial encounter; S93.401A Sprain of unspecified ligament of right ankle, initial encounter; S93.402A Sprain of unspecified ligament of left ankle, initial encounter; Z82.49 Family history of ischemic heart disease and other diseases of the circulatory system; Z68.1 Body mass index [BMI] 19.9 or less, adult; Z88.8 Allergy status to other drugs, medicaments and biological substances; Z83.3 Family history of diabetes mellitus; Z99.2 Dependence on renal dialysis; Z59.0 Homelessness; Y93.89 Activity, other specified; Y92.89 Other specified places as the place of occurrence of the external cause; Y99.8 Other external cause status; Z90.49 Acquired absence of other specified parts of digestive tract; Z86.14 Personal history of Methicillin resistant Staphylococcus aureus infection; Z56.0 Unemployment, unspecified; Z79.4 Long term (current) use of insulin
CPT/HCPCS: 36415; 72148; 72195; 73610; 73718; 74177; 80053; 80202; 81001; 82140; 82948; 83036; 83605; 83690; 83735; 83880; 84100; 84132; 84145; 84484; 85025; 85610; 85730; 87040; 87070; 87340; 93005; 96365; 96375; 96376; 97110; 97116; 97161; 97530; 99285; A6449; G0257; J0610; J0885; J1170; J1644; J1815; J1956; J2060; J2270; J2405; J3370; J3490; J7030; Q9963; Q9967

== ENCOUNTER 2017-12-10 19:13 | Emergency (ER) | payer MEDICAID ==
[~2017-12-10] VITALS: Ht 170.2 cm; Wt 47.7 kg
[~2017-12-10 19:13] MED LIST changes: -DOCU-28 PO; -FLUC100T9 PO; -FURO-150 PO; +FURO20TA4 PO; -HYDR-3972 PO; -LEVO750T46 PO; -LIDO700A35 TOP; -NEOM14.216 TP; -POTA10TA36 PO; -TAMS0.4C32 PO
[2017-12-10 21:16] VITALS: BP 157/95
== END 2017-12-10 21:29 | disposition home or self-care (01) ==
LOC: ER 19:14
DX: I12.0 Hypertensive chronic kidney disease with stage 5 chronic kidney disease or end stage renal disease (principal); E11.22 Type 2 diabetes mellitus with diabetic chronic kidney disease; N18.6 End stage renal disease; G89.29 Other chronic pain; F15.90 Other stimulant use, unspecified, uncomplicated; Z99.2 Dependence on renal dialysis; Z79.4 Long term (current) use of insulin; Z90.49 Acquired absence of other specified parts of digestive tract; Z98.890 Other specified postprocedural states; Z59.0 Homelessness; Z56.0 Unemployment, unspecified
CPT/HCPCS: 74176; 99284

== ENCOUNTER 2017-12-14 11:33 | Emergency (ER) | payer MEDICAID ==
[~2017-12-14] VITALS: Ht 170.2 cm; Wt 47.7 kg
[2017-12-14] MEDS ORDERED: pantoprazole 40 MG vial IV ONE (12:50)
[2017-12-14] MEDS ORDERED: ondansetron/PF 4mg/2ml inj IV ONE ×2 (12:50→15:35)
[2017-12-14 13:24] LABS: BASOPHILS % (AUTO) 0 % (0-1); EOSINOPHILS # (AUTO) 0.3 X10'3 (0-0.9); EOSINOPHILS % (AUTO) 3.6 % (0-6); HEMATOCRIT 34.8 % (42.0-52.0); HEMOGLOBIN 11.3 g/dl (14.0-17.9); LYMPHOCYTES # (AUTO) 1.5 X10'3 (1.1-4.8); LYMPHOCYTES % (AUTO) 16.9 % (21-51); MEAN CORPUSCULAR HGB CONC 32.4 % (33.0-36.5); MEAN CORPUSCULAR VOLUME 80.1 FL (78-98); MONOCYTES # (AUTO) 0.4 X10'3 (0-0.9); MONOCYTES % (AUTO) 4.5 % (2-12); NEUTROPHILS # (AUTO) 6.5 X10'3 (1.8-7.7); PLATELET COUNT 245 X10'3 (140-440); RED BLOOD COUNT 4.34 X10'6 (4.70-6.10); RED CELL DISTRIBUTION WIDTH 18.6 % (11.5-14.5); WHITE BLOOD COUNT 8.6 X10'3 (4.5-11.0)
[2017-12-14 13:31] LABS: ALANINE AMINOTRANSFERASE 161 U/L (12-78); ALBUMIN 1.7 G/DL (3.4-5.0); ALBUMIN/GLOBULIN RATIO 0.3 (1.1-1.5); ALKALINE PHOSPHATASE 370 IU/L (46-116); ANION GAP 7 (8-16); ASPARTATE AMINO TRANSFERASE 78 U/L (10-37); BILIRUBIN,TOTAL 0.2 MG/DL (0.1-1.0); BLOOD UREA NITROGEN 17 MG/DL (7-18); BUN/CREATININE RATIO 5.7 (5.4-32.0); CALCIUM 7.1 MG/DL (8.5-10.1); CHLORIDE 102 MMOL/L (99-107); CREATININE 2.96 MG/DL (0.60-1.10); GLUCOSE 221 MG/DL (70-104); LIPASE < 50 U/L (73-393); SODIUM 135 MMOL/L (135-145); TOTAL CARBON DIOXIDE 26.4 MMOL/L (24-32); TOTAL PROTEIN 6.8 G/DL (6.4-8.2); eGFR 23 ML/MIN
[2017-12-14] MEDS ORDERED: morphine 5 MG/ML injection IV ONE (14:55)
[2017-12-14] MEDS ORDERED: morphine 4 MG/ML inj SYRINge IV ONE (14:55)
[2017-12-14] MEDS ORDERED: ONDA4TAB6 PO (15:33)
[2017-12-14 16:04] VITALS: BP 181/145
== END 2017-12-14 17:14 | disposition home or self-care (01) ==
LOC: ER 11:33
DX: K86.1 Other chronic pancreatitis (principal); R10.13 Epigastric pain; I12.0 Hypertensive chronic kidney disease with stage 5 chronic kidney disease or end stage renal disease; E11.22 Type 2 diabetes mellitus with diabetic chronic kidney disease; N18.6 End stage renal disease; F15.90 Other stimulant use, unspecified, uncomplicated; Z79.4 Long term (current) use of insulin; Z59.0 Homelessness; Z56.0 Unemployment, unspecified; Z99.2 Dependence on renal dialysis; Z90.49 Acquired absence of other specified parts of digestive tract; Z98.890 Other specified postprocedural states
CPT/HCPCS: 36415; 80053; 83690; 85025; 96374; 96375; 96376; 99284; C9113; J2405

== ENCOUNTER 2018-01-08 10:19 | Emergency (ER) | payer MEDICAID ==
[~2018-01-08] VITALS: Ht 170.2 cm; Wt 48.6 kg
[~2018-01-08 10:19] MED LIST changes: +ONDA4TAB6 PO
[2018-01-08] MEDS ORDERED: hydrALAZINE 25 MG tablet PO STA (10:37)
[2018-01-08 11:09] LABS: BASOPHILS % (AUTO) 0.5 % (0-1); EOSINOPHILS # (AUTO) 0.1 X10'3 (0-0.9); EOSINOPHILS % (AUTO) 2.4 % (0-6); HEMATOCRIT 37.7 % (42.0-52.0); HEMOGLOBIN 12.2 g/dl (14.0-17.9); LYMPHOCYTES # (AUTO) 0.9 X10'3 (1.1-4.8); LYMPHOCYTES % (AUTO) 15.3 % (21-51); MEAN CORPUSCULAR HEMOGLOBIN 26.8 PG (27.0-31.0); MEAN CORPUSCULAR HGB CONC 32.4 % (33.0-36.5); MEAN CORPUSCULAR VOLUME 82.6 FL (78-98); MEAN PLATELET VOLUME 7.8 FL (7.4-10.4); MONOCYTES # (AUTO) 0.4 X10'3 (0-0.9); MONOCYTES % (AUTO) 6.8 % (2-12); NEUTROPHILS # (AUTO) 4.5 X10'3 (1.8-7.7); PLATELET COUNT 127 X10'3 (140-440); RED BLOOD COUNT 4.56 X10'6 (4.70-6.10); RED CELL DISTRIBUTION WIDTH 26.9 % (11.5-14.5)
[2018-01-08] MEDS ORDERED: furosemide 10 MG/1 ML 10ml inj IV ONE (11:20)
[2018-01-08 11:36] LABS: ALANINE AMINOTRANSFERASE 130 U/L (12-78); ALBUMIN 1.6 G/DL (3.4-5.0); ALBUMIN/GLOBULIN RATIO 0.4 (1.1-1.5); ALKALINE PHOSPHATASE 258 IU/L (46-116); ANION GAP 8 (8-16); ASPARTATE AMINO TRANSFERASE 284 U/L (10-37); BILIRUBIN,TOTAL 0.2 MG/DL (0.1-1.0); BLOOD UREA NITROGEN 33 MG/DL (7-18); BUN/CREATININE RATIO 9.2 (5.4-32.0); CALCIUM 6.1 MG/DL (8.5-10.1); CHLORIDE 99 MMOL/L (99-107); CREATININE 3.57 MG/DL (0.60-1.10); MAGNESIUM 2.2 MG/DL (1.5-2.4); SODIUM 130 MMOL/L (135-145); TOTAL CARBON DIOXIDE 22.7 MMOL/L (24-32); eGFR 19 ML/MIN
[2018-01-08 11:38] LABS: ANISOCYTOSIS 3+; MICROCYTOSIS 1+; PLATELET ESTIMATE DECREASED
[2018-01-08 11:42] LABS: POTASSIUM 6.1 MMOL/L (3.5-5.1)
[2018-01-08 11:43] LABS: GLUCOSE 664 MG/DL (70-104)
[2018-01-08 11:49] VITALS: BP 200/123
== END 2018-01-08 11:41 | disposition home or self-care (01) ==
LOC: ER 10:20
DX: I12.9 Hypertensive chronic kidney disease with stage 1 through stage 4 chronic kidney disease, or unspecified chronic kidney disease (principal); E11.22 Type 2 diabetes mellitus with diabetic chronic kidney disease; N18.9 Chronic kidney disease, unspecified; J81.0 Acute pulmonary edema; G89.29 Other chronic pain; F15.10 Other stimulant abuse, uncomplicated; Z86.14 Personal history of Methicillin resistant Staphylococcus aureus infection; Z88.8 Allergy status to other drugs, medicaments and biological substances; Z90.49 Acquired absence of other specified parts of digestive tract; Z98.890 Other specified postprocedural states; Z99.2 Dependence on renal dialysis; Z79.4 Long term (current) use of insulin; Z79.899 Other long term (current) drug therapy; Z87.891 Personal history of nicotine dependence; Z56.0 Unemployment, unspecified; Z59.0 Homelessness
CPT/HCPCS: 36415; 71045; 80053; 83735; 83880; 84145; 84484; 85025; 93005; 96374; 99285; J1940

== ENCOUNTER 2018-02-11 16:40 | Inpatient (IN) | payer MEDICAID ==
[~2018-02-11] VITALS: Ht 165.1 cm; Wt 51.0 kg
[2018-02-11] MEDS ORDERED: ondansetron/PF 4mg/2ml inj IV ONE (17:20)
[2018-02-11 17:51] LABS: BASOPHILS % (AUTO) 0.3 % (0-1); EOSINOPHILS # (AUTO) 0.2 X10'3 (0-0.9); EOSINOPHILS % (AUTO) 1.8 % (0-6); HEMATOCRIT 39.1 % (42.0-52.0); HEMOGLOBIN 13.4 g/dl (14.0-17.9); LYMPHOCYTES # (AUTO) 1.4 X10'3 (1.1-4.8); LYMPHOCYTES % (AUTO) 14.6 % (21-51); MEAN CORPUSCULAR HEMOGLOBIN 27.6 PG (27.0-31.0); MEAN CORPUSCULAR HGB CONC 34.3 % (33.0-36.5); MEAN CORPUSCULAR VOLUME 80.4 FL (78-98); MONOCYTES # (AUTO) 0.2 X10'3 (0-0.9); MONOCYTES % (AUTO) 1.7 % (2-12); NEUTROPHILS # (AUTO) 7.9 X10'3 (1.8-7.7); NEUTROPHILS % (AUTO) 81.6 % (42-75); PLATELET COUNT 91 X10'3 (140-440); RED BLOOD COUNT 4.87 X10'6 (4.70-6.10); RED CELL DISTRIBUTION WIDTH 22.5 % (11.5-14.5); WHITE BLOOD COUNT 9.7 X10'3 (4.5-11.0)
[2018-02-11 18:02] LABS: INR 1.4 INR; PARTIAL THROMBOPLASTIN TIME 63 SECONDS (22-32); PROTHROMBIN TIME 14.8 SECONDS (9.0-12.0)
[2018-02-11 18:06] LABS: ALANINE AMINOTRANSFERASE 166 U/L (12-78); ALBUMIN 1.7 G/DL (3.4-5.0); ALBUMIN/GLOBULIN RATIO 0.3 (1.1-1.5); ALKALINE PHOSPHATASE 323 IU/L (46-116); ANION GAP 6 (8-16); ASPARTATE AMINO TRANSFERASE 116 U/L (10-37); BILIRUBIN,TOTAL 0.3 MG/DL (0.1-1.0); BLOOD UREA NITROGEN 17 MG/DL (7-18); BUN/CREATININE RATIO 8.6 (5.4-32.0); CALCIUM 7.7 MG/DL (8.5-10.1); CHLORIDE 100 MMOL/L (99-107); CREATININE 1.98 MG/DL (0.60-1.10); GLUCOSE 274 MG/DL (70-104); LIPASE < 50 U/L (73-393); POTASSIUM 4.3 MMOL/L (3.5-5.1); SODIUM 136 MMOL/L (135-145); TOTAL CARBON DIOXIDE 30.1 MMOL/L (24-32); eGFR 37 ML/MIN
[2018-02-11 18:35] LABS: CLARITY,URINE CLEAR (Clear); COLOR,URINE YELLOW (Yellow); GLUCOSE, URINE >=1000 mg/dl (Neg); KETONES,URINE NEGATIVE (Neg); LEUKOCYTE ESTERASE ,URINE NEGATIVE (Neg); NITRITES, URINE POSITIVE (Neg); OCCULT BLOOD,URINE LARGE (Neg); PROTEIN,URINE >=300 mg/dl (Neg); UROBILINOGEN,URINE 0.2 E.U/dL (0.2-1.0)
[2018-02-11 18:37] LABS: UA COLLECTION TYPE FOLEY CATH
[2018-02-11 18:42] LABS: URINE AMPHETAMINE SCREEN NEGATIVE (Neg); URINE BARBITUATE SCREEN NEGATIVE (Neg); URINE BENZODIAZEPINES SCREEN NEGATIVE (Neg); URINE CANNABINOID SCREEN NEGATIVE (Neg); URINE COCAINE SCREEN NEGATIVE (Neg); URINE METHADONE SCREEN NEGATIVE (Neg); URINE OPIATE SCREEN NEGATIVE (Neg); URINE PHENCYCLIDINE SCREEN NEGATIVE (Neg)
[2018-02-11 18:45] LABS: WBC,URINE TNTC /HPF (0-4)
[2018-02-11 18:46] LABS: BACTERIA,URINE FEW /HPF (Neg); SQUAMOUS EPITHELIAL CELL,UR NONE SEEN /LPF (FEW); WBC CLUMPS,URINE MODERATE /HPF (NEGATIVE)
[2018-02-11] MEDS ORDERED: CefTRIAXone 2gm/D5W 50ml 50 ML IV ONE (19:10)
[2018-02-11] MEDS ORDERED: mag hydrox/Alum hydrox/simeth 30ml oral suspension PO PRN (19:45)
[2018-02-11] MEDS ORDERED: acetaminophen 325mg tablet PO PRN (19:45)
[2018-02-11] MEDS ORDERED: magnesium hydroxide 30ml (MOM) UD suspension PO PRN (19:45)
[2018-02-11] MEDS ORDERED: FURO40TA4 PO (20:34)
[2018-02-11] MEDS ORDERED: ondansetron 4mg rapidly disintigrating tab PO PRN (21:05)
[2018-02-11] MEDS ORDERED: glucagon, human recombinant 1mg kit SUBCUT PRN (21:30)
[2018-02-11] MEDS ORDERED: dextrose 50%-water 50ml dispensing syringe IV PRN ×2 (21:30)
[2018-02-11] MEDS ORDERED: dextrose ORAL solution 15 GM/59 ML bottle PO PRN ×2 (21:30)
[2018-02-11] MEDS: metoprolol tartrate 50mg tablet PO SCH (21:35)
[2018-02-11 22:00] LABS: HEMOGLOBIN A1C 9.9 % (4.5-6.2)
[2018-02-12] MEDS ORDERED: ONDANSETRON HCL PO SCH
[2018-02-12] MEDS: ondansetron 4mg rapidly disintigrating tab PO SCH ×4 (00:13→23:39)
[2018-02-12 07:32] LABS: BASOPHILS % (AUTO) 0.2 % (0-1); EOSINOPHILS # (AUTO) 0.2 X10'3 (0-0.9); HEMATOCRIT 33.9 % (42.0-52.0); HEMOGLOBIN 11.3 g/dl (14.0-17.9); LYMPHOCYTES # (AUTO) 1.7 X10'3 (1.1-4.8); LYMPHOCYTES % (AUTO) 21.5 % (21-51); MEAN CORPUSCULAR HEMOGLOBIN 27.1 PG (27.0-31.0); MEAN CORPUSCULAR HGB CONC 33.4 % (33.0-36.5); MEAN CORPUSCULAR VOLUME 81.2 FL (78-98); MEAN PLATELET VOLUME 8.7 FL (7.4-10.4); MONOCYTES # (AUTO) 0.3 X10'3 (0-0.9); MONOCYTES % (AUTO) 4.3 % (2-12); NEUTROPHILS # (AUTO) 5.7 X10'3 (1.8-7.7); PLATELET COUNT 86 X10'3 (140-440); RED BLOOD COUNT 4.17 X10'6 (4.70-6.10); RED CELL DISTRIBUTION WIDTH 22.8 % (11.5-14.5); WHITE BLOOD COUNT 7.9 X10'3 (4.5-11.0)
[2018-02-12] MEDS: FLUoxetine 20mg capsule PO SCH (07:40)
[2018-02-12] MEDS: CefTRIAXone 2gm/D5W 50ml 50 ML IV SCH (07:40)
[2018-02-12] MEDS: metoprolol tartrate 50mg tablet PO SCH ×2 (07:40→19:34)
[2018-02-12] MEDS: furosemide 40mg tablet PO SCH (07:40)
[2018-02-12 07:46] LABS: ALANINE AMINOTRANSFERASE 118 U/L (12-78); ALBUMIN 1.4 G/DL (3.4-5.0); ALBUMIN/GLOBULIN RATIO 0.3 (1.1-1.5); ALKALINE PHOSPHATASE 239 IU/L (46-116); ANION GAP 6 (8-16); ASPARTATE AMINO TRANSFERASE 58 U/L (10-37); BILIRUBIN,TOTAL 0.2 MG/DL (0.1-1.0); BLOOD UREA NITROGEN 23 MG/DL (7-18); BUN/CREATININE RATIO 10.1 (5.4-32.0); CALCIUM 7.1 MG/DL (8.5-10.1); CHLORIDE 101 MMOL/L (99-107); CREATININE 2.27 MG/DL (0.60-1.10); GLUCOSE 258 MG/DL (70-104); MAGNESIUM 1.8 MG/DL (1.5-2.4); PHOSPHORUS 4.4 MG/DL (2.3-4.5); POTASSIUM 4.7 MMOL/L (3.5-5.1); SODIUM 135 MMOL/L (135-145); TOTAL CARBON DIOXIDE 27.9 MMOL/L (24-32); TOTAL PROTEIN 5.8 G/DL (6.4-8.2); eGFR 31 ML/MIN
[2018-02-12] MEDS ORDERED: INSULIN LISPRO PROTAMINE SQ SCH (08:00)
[2018-02-12] MEDS ORDERED: INSULIN LISPRO SUBCUT SCH (08:00)
[2018-02-12] MEDS ORDERED: INSULIN LISPRO SQ SCH (08:00)
[2018-02-12] MEDS ORDERED: non-formulary drug (Fluoxetine HCl (Prozac) 1 CAP) PO SCH (08:00)
[2018-02-12] MEDS ORDERED: metoprolol tartrate 50mg tablet PO SCH (08:00)
[2018-02-12] MEDS ORDERED: INSULIN LISPRO PROTAMINE SUBCUT SCH (08:00)
[2018-02-12] MEDS ORDERED: CLON0.5T4 PO (09:01)
[2018-02-12 11:10] VITALS: BP 148/44
[2018-02-12] MEDS ORDERED: LIDOcaine 1%/PF (10mg/ml) 5ml vial ONE (11:12)
[2018-02-12 11:25] VITALS: BP 139/101
[2018-02-12 15:00] VITALS: BP 140/101
[2018-02-12] MEDS: HYDROcodone/acetaminophen 5mg/325mg tablet PO PRN ×2 (16:41→22:24)
[2018-02-12] MEDS ORDERED: insulin Lispro (HumaLOG) vial - multi-dose SQ SCH (17:00)
[2018-02-12] MEDS ORDERED: dextrose ORAL solution 15 GM/59 ML bottle PO PRN ×2 (17:45)
[2018-02-12] MEDS ORDERED: glucagon, human recombinant 1mg kit SUBCUT PRN (17:45)
[2018-02-12] MEDS ORDERED: dextrose 50%-water 50ml dispensing syringe IV PRN ×2 (17:45)
[2018-02-12 18:00] VITALS: BP 125/91
[2018-02-12] MEDS: insulin Lispro (HumaLOG) vial - multi-dose SQ SCH ×2 (19:26→22:45)
[2018-02-12] MEDS: lactobacillus rhamnosus 10,000 MMU CELLS/CAPSULE PO SCH (19:34)
[2018-02-12 22:00] VITALS: BP 154/93
[2018-02-12] MEDS: insulin glargine (Lantus) pen - multi-dose SQ SCH (22:43)
[2018-02-13 02:00] VITALS: BP 154/97
[2018-02-13 06:08] LABS: BASOPHILS % (AUTO) 0.3 % (0-1); EOSINOPHILS # (AUTO) 0.1 X10'3 (0-0.9); EOSINOPHILS % (AUTO) 2.3 % (0-6); HEMATOCRIT 33.2 % (42.0-52.0); LYMPHOCYTES # (AUTO) 2.2 X10'3 (1.1-4.8); LYMPHOCYTES % (AUTO) 34.5 % (21-51); MEAN CORPUSCULAR HEMOGLOBIN 27.4 PG (27.0-31.0); MEAN CORPUSCULAR HGB CONC 33.2 % (33.0-36.5); MEAN CORPUSCULAR VOLUME 82.4 FL (78-98); MEAN PLATELET VOLUME 8.9 FL (7.4-10.4); MONOCYTES # (AUTO) 0.4 X10'3 (0-0.9); MONOCYTES % (AUTO) 5.8 % (2-12); NEUTROPHILS # (AUTO) 3.7 X10'3 (1.8-7.7); NEUTROPHILS % (AUTO) 57.1 % (42-75); PLATELET COUNT 95 X10'3 (140-440); RED BLOOD COUNT 4.03 X10'6 (4.70-6.10); RED CELL DISTRIBUTION WIDTH 22.5 % (11.5-14.5); WHITE BLOOD COUNT 6.4 X10'3 (4.5-11.0)
[2018-02-13 06:52] LABS: ALANINE AMINOTRANSFERASE 110 U/L (12-78); ALBUMIN 1.4 G/DL (3.4-5.0); ALBUMIN/GLOBULIN RATIO 0.3 (1.1-1.5); ALKALINE PHOSPHATASE 238 IU/L (46-116); ANION GAP 8 (8-16); ASPARTATE AMINO TRANSFERASE 57 U/L (10-37); BILIRUBIN,TOTAL 0.1 MG/DL (0.1-1.0); BLOOD UREA NITROGEN 26 MG/DL (7-18); CALCIUM 7.1 MG/DL (8.5-10.1); CHLORIDE 101 MMOL/L (99-107); CREATININE 2.89 MG/DL (0.60-1.10); GLUCOSE 84 MG/DL (70-104); MAGNESIUM 1.9 MG/DL (1.5-2.4); PHOSPHORUS 4.9 MG/DL (2.3-4.5); POTASSIUM 4.9 MMOL/L (3.5-5.1); SODIUM 135 MMOL/L (135-145); TOTAL CARBON DIOXIDE 25.8 MMOL/L (24-32); TOTAL PROTEIN 5.8 G/DL (6.4-8.2); eGFR 24 ML/MIN
[2018-02-13 07:00] VITALS: BP 158/107
[2018-02-13] MEDS: FLUoxetine 20mg capsule PO SCH (07:19)
[2018-02-13] MEDS: CefTRIAXone 2gm/D5W 50ml 50 ML IV SCH (07:19)
[2018-02-13] MEDS: ondansetron 4mg rapidly disintigrating tab PO SCH (07:19)
[2018-02-13] MEDS: furosemide 40mg tablet PO SCH (07:19)
[2018-02-13] MEDS: lactobacillus rhamnosus 10,000 MMU CELLS/CAPSULE PO SCH ×2 (07:19→19:35)
[2018-02-13] MEDS: metoprolol tartrate 50mg tablet PO SCH ×2 (07:20→19:35)
[2018-02-13] MEDS ORDERED: normal saline 1000ml 250 ML IV PRN (08:00)
[2018-02-13] MEDS ORDERED: LIDOcaine 1% (10mg/ml) 2ml vial SQ ONE (08:00)
[2018-02-13] MEDS ORDERED: heparin 1,000 units/ml 10ml inj HE ONE ×2 (08:00)
[2018-02-13] MEDS ORDERED: heparin 1,000unit/ml 10ml vial 10 ML IV ONE (08:00)
[2018-02-13] MEDS ORDERED: heparin 1,000 units/ml 10ml inj IV ONE (08:00)
[2018-02-13] MEDS ORDERED: epoetin 20,000 units/ml inj IV ONE (08:00)
[2018-02-13] MEDS ORDERED: HYDROcodone/acetaminophen 5mg/325mg tablet PO ONE (09:30)
[2018-02-13] MEDS: HYDROcodone/acetaminophen 5mg/325mg tablet PO PRN ×3 (09:53→22:22)
[2018-02-13 11:00] VITALS: BP 142/103
[2018-02-13] MEDS ORDERED: vancomycin/NS 1 GM ADD-VANTAGE 250 ML IV ONE (11:38)
[2018-02-13] MEDS: ondansetron/PF 4mg/2ml inj IV PRN ×2 (12:20→22:22)
[2018-02-13 15:00] VITALS: BP 181/111
[2018-02-13] MEDS ORDERED: metoprolol tartrate 25mg tablet PO ONE (16:05)
[2018-02-13 18:00] VITALS: BP 150/86
[2018-02-13] MEDS: insulin glargine (Lantus) pen - multi-dose SQ SCH (21:00)
[2018-02-13 22:00] VITALS: BP 150/96
[2018-02-14] VITALS (7 sets, daily range): BP systolic 150–180; BP diastolic 62–117
[2018-02-14] MEDS: VANCOMYCIN LEVEL IV SCH (03:00)
[2018-02-14] MEDS ORDERED: vancomycin/NS 1 GM ADD-VANTAGE 250 ML IV PRN (06:00)
[2018-02-14 06:11] LABS: BASOPHILS % (AUTO) 0.3 % (0-1); EOSINOPHILS # (AUTO) 0.1 X10'3 (0-0.9); EOSINOPHILS % (AUTO) 1.5 % (0-6); HEMATOCRIT 43.5 % (42.0-52.0); HEMOGLOBIN 14.6 g/dl (14.0-17.9); LYMPHOCYTES # (AUTO) 1.9 X10'3 (1.1-4.8); LYMPHOCYTES % (AUTO) 29.5 % (21-51); MEAN CORPUSCULAR HEMOGLOBIN 27.3 PG (27.0-31.0); MEAN CORPUSCULAR HGB CONC 33.5 % (33.0-36.5); MEAN CORPUSCULAR VOLUME 81.3 FL (78-98); MONOCYTES # (AUTO) 0.3 X10'3 (0-0.9); MONOCYTES % (AUTO) 4.7 % (2-12); NEUTROPHILS # (AUTO) 4.2 X10'3 (1.8-7.7); PLATELET COUNT 116 X10'3 (140-440); RED BLOOD COUNT 5.35 X10'6 (4.70-6.10); RED CELL DISTRIBUTION WIDTH 22.3 % (11.5-14.5); WHITE BLOOD COUNT 6.6 X10'3 (4.5-11.0)
[2018-02-14] MEDS: metoprolol tartrate 50mg tablet PO SCH ×2 (06:39→20:48)
[2018-02-14] MEDS: lactobacillus rhamnosus 10,000 MMU CELLS/CAPSULE PO SCH ×2 (07:15→20:48)
[2018-02-14] MEDS: FLUoxetine 20mg capsule PO SCH (07:15)
[2018-02-14] MEDS: furosemide 40mg tablet PO SCH (07:15)
[2018-02-14 08:03] LABS: ALANINE AMINOTRANSFERASE 127 U/L (12-78); ALBUMIN 1.8 G/DL (3.4-5.0); ALBUMIN/GLOBULIN RATIO 0.3 (1.1-1.5); ALKALINE PHOSPHATASE 298 IU/L (46-116); ANION GAP 11 (8-16); ASPARTATE AMINO TRANSFERASE 78 U/L (10-37); BILIRUBIN,TOTAL 0.2 MG/DL (0.1-1.0); BLOOD UREA NITROGEN 16 MG/DL (7-18); BUN/CREATININE RATIO 7.3 (5.4-32.0); CALCIUM 7.6 MG/DL (8.5-10.1); CHLORIDE 99 MMOL/L (99-107); CREATININE 2.18 MG/DL (0.60-1.10); GLUCOSE 70 MG/DL (70-104); PHOSPHORUS 4.3 MG/DL (2.3-4.5); POTASSIUM 4.5 MMOL/L (3.5-5.1); SODIUM 135 MMOL/L (135-145); TOTAL CARBON DIOXIDE 24.6 MMOL/L (24-32); TOTAL PROTEIN 7.6 G/DL (6.4-8.2); VANCOMYCIN,RANDOM 14.8 UG/ML; eGFR 33 ML/MIN
[2018-02-14] MEDS ORDERED: vancomycin/NS 1 GM ADD-VANTAGE 250 ML IV ONE (11:30)
[2018-02-14] MEDS: hydrALAZINE 20mg/ml inj. IV PRN (11:50)
[2018-02-14] MEDS: clonazePAM 0.5mg tablet PO PRN (14:46)
[2018-02-14] MEDS: HYDROcodone/acetaminophen 5mg/325mg tablet PO PRN (17:28)
[2018-02-14] MEDS ORDERED: HYDROcodone/acetaminophen 10/325mg tab PO PRN (19:35)
[2018-02-14] MEDS: insulin glargine (Lantus) pen - multi-dose SQ SCH (21:00)
[2018-02-15 03:00] VITALS: BP 181/111
[2018-02-15] MEDS: VANCOMYCIN LEVEL IV SCH (03:00)
[2018-02-15] MEDS: hydrALAZINE 20mg/ml inj. IV PRN (03:31)
[2018-02-15 06:05] LABS: BASOPHILS % (AUTO) 0.2 % (0-1); EOSINOPHILS # (AUTO) 0.1 X10'3 (0-0.9); EOSINOPHILS % (AUTO) 1.5 % (0-6); HEMATOCRIT 35.1 % (42.0-52.0); HEMOGLOBIN 11.7 g/dl (14.0-17.9); LYMPHOCYTES # (AUTO) 1.7 X10'3 (1.1-4.8); LYMPHOCYTES % (AUTO) 22.9 % (21-51); MEAN CORPUSCULAR HEMOGLOBIN 27.3 PG (27.0-31.0); MEAN CORPUSCULAR HGB CONC 33.2 % (33.0-36.5); MEAN CORPUSCULAR VOLUME 82.1 FL (78-98); MEAN PLATELET VOLUME 8.9 FL (7.4-10.4); MONOCYTES # (AUTO) 0.4 X10'3 (0-0.9); NEUTROPHILS % (AUTO) 69.4 % (42-75); PLATELET COUNT 114 X10'3 (140-440); RED BLOOD COUNT 4.27 X10'6 (4.70-6.10); RED CELL DISTRIBUTION WIDTH 22.4 % (11.5-14.5); WHITE BLOOD COUNT 7.2 X10'3 (4.5-11.0)
[2018-02-15 06:21] LABS: ALANINE AMINOTRANSFERASE 84 U/L (12-78); ALBUMIN 1.5 G/DL (3.4-5.0); ALBUMIN/GLOBULIN RATIO 0.3 (1.1-1.5); ALKALINE PHOSPHATASE 224 IU/L (46-116); ANION GAP 6 (8-16); ASPARTATE AMINO TRANSFERASE 44 U/L (10-37); BILIRUBIN,TOTAL 0.2 MG/DL (0.1-1.0); BLOOD UREA NITROGEN 21 MG/DL (7-18); BUN/CREATININE RATIO 8.1 (5.4-32.0); CALCIUM 7.2 MG/DL (8.5-10.1); CHLORIDE 101 MMOL/L (99-107); CREATININE 2.59 MG/DL (0.60-1.10); GLUCOSE 232 MG/DL (70-104); PHOSPHORUS 5.2 MG/DL (2.3-4.5); POTASSIUM 4.9 MMOL/L (3.5-5.1); SODIUM 134 MMOL/L (135-145); TOTAL CARBON DIOXIDE 26.7 MMOL/L (24-32); TOTAL PROTEIN 6.2 G/DL (6.4-8.2); eGFR 27 ML/MIN
[2018-02-15 06:31] VITALS: BP 144/79
[2018-02-15] MEDS: furosemide 40mg tablet PO SCH (07:20)
[2018-02-15] MEDS: HYDROcodone/acetaminophen 5mg/325mg tablet PO PRN ×2 (07:20→15:40)
[2018-02-15] MEDS: metoprolol tartrate 50mg tablet PO SCH ×2 (07:20→19:33)
[2018-02-15] MEDS: FLUoxetine 20mg capsule PO SCH (07:20)
[2018-02-15] MEDS: clonazePAM 0.5mg tablet PO PRN ×2 (07:20→19:38)
[2018-02-15] MEDS: lactobacillus rhamnosus 10,000 MMU CELLS/CAPSULE PO SCH ×2 (07:21→19:33)
[2018-02-15] MEDS: insulin Lispro (HumaLOG) vial - multi-dose SQ SCH ×3 (08:52→19:36)
[2018-02-15 11:23] VITALS: BP 169/106
[2018-02-15 15:54] VITALS: BP 175/108
[2018-02-15 19:00] VITALS: BP 164/104
[2018-02-15] MEDS: insulin glargine (Lantus) pen - multi-dose SQ SCH (21:00)
[2018-02-15 23:00] VITALS: BP 169/107
[2018-02-16] MEDS: ondansetron/PF 4mg/2ml inj IV PRN (02:54)
[2018-02-16 03:00] VITALS: BP 172/115
[2018-02-16] MEDS: VANCOMYCIN LEVEL IV SCH (03:00)
[2018-02-16] MEDS: hydrALAZINE 20mg/ml inj. IV PRN ×2 (04:29→22:12)
[2018-02-16] MEDS: HYDROcodone/acetaminophen 5mg/325mg tablet PO PRN (05:37)
[2018-02-16 05:50] LABS: BASOPHILS % (AUTO) 0.4 % (0-1); EOSINOPHILS # (AUTO) 0.2 X10'3 (0-0.9); EOSINOPHILS % (AUTO) 2.6 % (0-6); HEMATOCRIT 35.3 % (42.0-52.0); HEMOGLOBIN 11.9 g/dl (14.0-17.9); LYMPHOCYTES # (AUTO) 1.6 X10'3 (1.1-4.8); LYMPHOCYTES % (AUTO) 23.6 % (21-51); MEAN CORPUSCULAR HEMOGLOBIN 27.6 PG (27.0-31.0); MEAN CORPUSCULAR HGB CONC 33.8 % (33.0-36.5); MEAN CORPUSCULAR VOLUME 81.8 FL (78-98); MEAN PLATELET VOLUME 8.7 FL (7.4-10.4); MONOCYTES # (AUTO) 0.3 X10'3 (0-0.9); MONOCYTES % (AUTO) 4.9 % (2-12); NEUTROPHILS # (AUTO) 4.7 X10'3 (1.8-7.7); NEUTROPHILS % (AUTO) 68.5 % (42-75); PLATELET COUNT 122 X10'3 (140-440); RED BLOOD COUNT 4.32 X10'6 (4.70-6.10); RED CELL DISTRIBUTION WIDTH 22.1 % (11.5-14.5); WHITE BLOOD COUNT 6.8 X10'3 (4.5-11.0)
[2018-02-16 06:00] VITALS: BP 152/91
[2018-02-16 06:25] LABS: ALANINE AMINOTRANSFERASE 135 U/L (12-78); ALBUMIN 1.5 G/DL (3.4-5.0); ALBUMIN/GLOBULIN RATIO 0.3 (1.1-1.5); ALKALINE PHOSPHATASE 259 IU/L (46-116); ANION GAP 8 (8-16); ASPARTATE AMINO TRANSFERASE 201 U/L (10-37); BILIRUBIN,TOTAL 0.2 MG/DL (0.1-1.0); BLOOD UREA NITROGEN 29 MG/DL (7-18); BUN/CREATININE RATIO 9.5 (5.4-32.0); CHLORIDE 102 MMOL/L (99-107); CREATININE 3.05 MG/DL (0.60-1.10); GLUCOSE 142 MG/DL (70-104); MAGNESIUM 1.9 MG/DL (1.5-2.4); PHOSPHORUS 6.1 MG/DL (2.3-4.5); POTASSIUM 5.3 MMOL/L (3.5-5.1); SODIUM 135 MMOL/L (135-145); TOTAL PROTEIN 6.2 G/DL (6.4-8.2); VANCOMYCIN,RANDOM 20.4 UG/ML; eGFR 22 ML/MIN
[2018-02-16] MEDS: lactobacillus rhamnosus 10,000 MMU CELLS/CAPSULE PO SCH ×2 (07:46→19:47)
[2018-02-16] MEDS: metoprolol tartrate 50mg tablet PO SCH ×2 (07:46→19:47)
[2018-02-16] MEDS: FLUoxetine 20mg capsule PO SCH (07:46)
[2018-02-16] MEDS: furosemide 40mg tablet PO SCH (07:46)
[2018-02-16] MEDS: insulin Lispro (HumaLOG) vial - multi-dose SQ SCH ×3 (07:53→19:26)
[2018-02-16] MEDS: clonazePAM 0.5mg tablet PO PRN (07:56)
[2018-02-16] MEDS ORDERED: epoetin 20,000 units/ml inj IV ONE (08:45)
[2018-02-16] MEDS ORDERED: albumin (human) 25% 100ml IV 100 ML IV PRN (08:45)
[2018-02-16] MEDS ORDERED: heparin 1,000unit/ml 10ml vial 10 ML IV ONE (08:45)
[2018-02-16] MEDS ORDERED: heparin 1,000 units/ml 10ml inj IV ONE (08:45)
[2018-02-16] MEDS ORDERED: heparin 1,000 units/ml 10ml inj HE ONE ×2 (08:50)
[2018-02-16 11:00] VITALS: BP 171/114
[2018-02-16 15:00] VITALS: BP 176/90
[2018-02-16] MEDS: HYDROmorphone inj. 0.5 MG/0.5 ML DISP.SYRIN IV PRN ×2 (15:49→22:10)
[2018-02-16 19:00] VITALS: BP 176/106
[2018-02-16 23:00] VITALS: BP 178/111
[2018-02-16] MEDS: insulin glargine (Lantus) pen - multi-dose SQ SCH (23:07)
[2018-02-17 03:00] VITALS: BP 149/45
[2018-02-17] MEDS: VANCOMYCIN LEVEL IV SCH (03:00)
[2018-02-17] MEDS: HYDROmorphone inj. 0.5 MG/0.5 ML DISP.SYRIN IV PRN ×4 (03:07→17:50)
[2018-02-17 06:00] VITALS: BP 141/44
[2018-02-17] MEDS: FLUoxetine 20mg capsule PO SCH (07:54)
[2018-02-17] MEDS: furosemide 40mg tablet PO SCH (07:54)
[2018-02-17] MEDS: lactobacillus rhamnosus 10,000 MMU CELLS/CAPSULE PO SCH ×2 (07:54→19:37)
[2018-02-17] MEDS: metoprolol tartrate 50mg tablet PO SCH ×2 (07:54→19:37)
[2018-02-17] MEDS: insulin Lispro (HumaLOG) vial - multi-dose SQ SCH ×2 (07:59→13:07)
[2018-02-17] MEDS ORDERED: NITR100C PO (08:57)
[2018-02-17 11:00] VITALS: BP 162/67
[2018-02-17 15:00] VITALS: BP 152/103
[2018-02-17 19:00] VITALS: BP 160/99
== END 2018-02-17 19:50 | disposition home or self-care (01) | DRG 139 ==
LOC: ER 16:41 → ED HOLD 19:44 → PCU 3S 02-12 15:11
PROVIDERS: ATTEND Internal Medicine Critical Care Medicine
PROC: 0W9B3ZZ Drainage of Left Pleural Cavity, Percutaneous Approach (ICD-10-PCS; principal; 2018-02-12)
PROC: 0W993ZZ Drainage of Right Pleural Cavity, Percutaneous Approach (ICD-10-PCS; 2018-02-12)
PROC: 5A1D70Z Performance of Urinary Filtration, Intermittent, Less than 6 Hours Per Day (ICD-10-PCS; 2018-02-13)
PROC: 5A1D70Z Performance of Urinary Filtration, Intermittent, Less than 6 Hours Per Day (ICD-10-PCS; 2018-02-16)
DX: J18.9 Pneumonia, unspecified organism (principal); E10.22 Type 1 diabetes mellitus with diabetic chronic kidney disease; J91.8 Pleural effusion in other conditions classified elsewhere; I12.0 Hypertensive chronic kidney disease with stage 5 chronic kidney disease or end stage renal disease; N18.6 End stage renal disease; N39.0 Urinary tract infection, site not specified; K52.9 Noninfective gastroenteritis and colitis, unspecified; E10.51 Type 1 diabetes mellitus with diabetic peripheral angiopathy without gangrene; F15.90 Other stimulant use, unspecified, uncomplicated; G89.29 Other chronic pain; B18.2 Chronic viral hepatitis C; K21.0 Gastro-esophageal reflux disease with esophagitis; Z59.0 Homelessness; Z79.4 Long term (current) use of insulin; Z99.2 Dependence on renal dialysis; Z88.8 Allergy status to other drugs, medicaments and biological substances; Z90.49 Acquired absence of other specified parts of digestive tract; Z86.14 Personal history of Methicillin resistant Staphylococcus aureus infection
CPT/HCPCS: 32555; 36415; 71045; 71250; 74176; 80053; 80202; 80305; 81001; 82330; 82948; 83036; 83605; 83690; 83735; 84100; 85025; 85610; 85730; 87040; 87070; 87077; 87088; 87186; A6251; A6449; G0257; J0360; J0696; J0885; J1170; J1644; J1815; J2001; J2405; J3370; J7030

== ENCOUNTER 2018-04-20 14:12 | Emergency (ER) | payer MEDICAID ==
[~2018-04-20] VITALS: Ht 170.2 cm; Wt 50.0 kg
[~2018-04-20 14:12] MED LIST changes: +CLON0.5T12 PO; -FURO20TA4 PO; +FURO40TA4 PO; +NITR100C PO
[2018-04-20 14:16] VITALS: BP 168/98
== END 2018-04-20 15:00 | disposition home or self-care (01) ==
LOC: ER 14:13
DX: R19.7 Diarrhea, unspecified (principal); R53.1 Weakness; R11.0 Nausea; R10.13 Epigastric pain; G89.29 Other chronic pain; Z86.14 Personal history of Methicillin resistant Staphylococcus aureus infection; I12.9 Hypertensive chronic kidney disease with stage 1 through stage 4 chronic kidney disease, or unspecified chronic kidney disease; E10.22 Type 1 diabetes mellitus with diabetic chronic kidney disease; N18.9 Chronic kidney disease, unspecified; Z99.2 Dependence on renal dialysis; Z88.8 Allergy status to other drugs, medicaments and biological substances; Z79.899 Other long term (current) drug therapy
CPT/HCPCS: 99284

== ENCOUNTER 2018-07-23 17:53 | Emergency (ER) | payer MEDICARE, MEDICAID ==
[~2018-07-23] VITALS: Ht 584.7 cm; Wt 54.0 kg
[~2018-07-23 17:53] MED LIST changes: +LABE100T5 PO; +LISI-600 PO; -METO50TA17 PO; -NITR100C PO
[2018-07-23] MEDS ORDERED: lisinopril 10 MG tablet PO ONE (18:00)
[2018-07-23 18:44] LABS: BASOPHILS % (AUTO) 0.7 % (0-1); EOSINOPHILS # (AUTO) 0.2 X10'3 (0-0.9); EOSINOPHILS % (AUTO) 4.3 % (0-6); HEMATOCRIT 34.5 % (42.0-52.0); HEMOGLOBIN 11.7 g/dl (14.0-17.9); LYMPHOCYTES # (AUTO) 1.4 X10'3 (1.1-4.8); MEAN CORPUSCULAR HEMOGLOBIN 29.6 PG (27.0-31.0); MEAN CORPUSCULAR HGB CONC 33.8 % (33.0-36.5); MEAN CORPUSCULAR VOLUME 87.4 FL (78-98); MEAN PLATELET VOLUME 6.4 FL (7.4-10.4); MONOCYTES # (AUTO) 0.3 X10'3 (0-0.9); MONOCYTES % (AUTO) 7.2 % (2-12); NEUTROPHILS # (AUTO) 2.7 X10'3 (1.8-7.7); NEUTROPHILS % (AUTO) 57.8 % (42-75); PLATELET COUNT 201 X10'3 (140-440); RED BLOOD COUNT 3.94 X10'6 (4.70-6.10); RED CELL DISTRIBUTION WIDTH 20.3 % (11.5-14.5); WHITE BLOOD COUNT 4.7 X10'3 (4.5-11.0)
[2018-07-23 18:58] LABS: ALANINE AMINOTRANSFERASE 72 U/L (12-78); ALBUMIN 1.8 G/DL (3.4-5.0); ALBUMIN/GLOBULIN RATIO 0.3 (1.1-1.5); ALKALINE PHOSPHATASE 206 IU/L (46-116); ANION GAP 3 (8-16); ASPARTATE AMINO TRANSFERASE 95 U/L (10-37); BILIRUBIN,TOTAL 0.4 MG/DL (0.1-1.0); BLOOD UREA NITROGEN 7 MG/DL (7-18); BUN/CREATININE RATIO 5.3 (5.4-32.0); CALCIUM 7.4 MG/DL (8.5-10.1); CHLORIDE 102 MMOL/L (99-107); CREATININE 1.33 MG/DL (0.60-1.10); GLUCOSE 189 MG/DL (70-104); MAGNESIUM 1.7 MG/DL (1.5-2.4); POTASSIUM 3.3 MMOL/L (3.5-5.1); SODIUM 137 MMOL/L (135-145); TOTAL CARBON DIOXIDE 31.9 MMOL/L (24-32); eGFR 58 ML/MIN
[2018-07-23] MEDS ORDERED: hydrALAZINE 20mg/ml inj. IV ONE (19:20)
[2018-07-23] MEDS ORDERED: sucralfate 1gm/10ml UD suspension PO STA (19:25)
[2018-07-23] MEDS ORDERED: LIDOcaine Viscous 15ml cup PO ONE (19:25)
[2018-07-23] MEDS ORDERED: mag hydrox/Alum hydrox/simeth 30ml oral suspension PO ONE (19:25)
[2018-07-23 20:13] VITALS: BP 139/79
[2018-07-23] MEDS ORDERED: morphine 4 MG/ML inj SYRINge IV ONE (20:35)
[2018-07-23] MEDS ORDERED: morphine 4 MG/ML inj SYRINge IV PRN (20:50)
[2018-07-23] MEDS ORDERED: LISI40TA4 PO (21:10)
== END 2018-07-23 22:12 | disposition home or self-care (01) ==
LOC: ER 17:53
DX: I16.0 Hypertensive urgency (principal); R10.9 Unspecified abdominal pain; I12.9 Hypertensive chronic kidney disease with stage 1 through stage 4 chronic kidney disease, or unspecified chronic kidney disease; E10.22 Type 1 diabetes mellitus with diabetic chronic kidney disease; N18.9 Chronic kidney disease, unspecified; Z99.2 Dependence on renal dialysis; G89.29 Other chronic pain; F15.90 Other stimulant use, unspecified, uncomplicated; Z88.8 Allergy status to other drugs, medicaments and biological substances; Z79.899 Other long term (current) drug therapy; Z59.0 Homelessness; Z56.0 Unemployment, unspecified
CPT/HCPCS: 36415; 71045; 80053; 83735; 85025; 93005; 96374; 96375; 99285; J0360; J2270

== ENCOUNTER 2018-08-16 12:15 | Emergency (ER) | payer MEDICARE, MEDICAID ==
[~2018-08-16] VITALS: Ht 170.2 cm; Wt 50.0 kg
[~2018-08-16 12:15] MED LIST changes: +LISI40TA4 PO
[2018-08-16 12:56] LABS: BASOPHILS % (AUTO) 0.2 % (0-1); EOSINOPHILS # (AUTO) 0.2 X10'3 (0-0.9); HEMATOCRIT 33.8 % (42.0-52.0); LYMPHOCYTES # (AUTO) 1.4 X10'3 (1.1-4.8); LYMPHOCYTES % (AUTO) 21.7 % (21-51); MEAN CORPUSCULAR HEMOGLOBIN 28.9 PG (27.0-31.0); MEAN CORPUSCULAR HGB CONC 32.6 % (33.0-36.5); MEAN CORPUSCULAR VOLUME 88.8 FL (78-98); MONOCYTES # (AUTO) 0.3 X10'3 (0-0.9); MONOCYTES % (AUTO) 5.4 % (2-12); NEUTROPHILS # (AUTO) 4.4 X10'3 (1.8-7.7); NEUTROPHILS % (AUTO) 69.7 % (42-75); PLATELET COUNT 185 X10'3 (140-440); RED BLOOD COUNT 3.81 X10'6 (4.70-6.10); RED CELL DISTRIBUTION WIDTH 17.4 % (11.5-14.5); WHITE BLOOD COUNT 6.3 X10'3 (4.5-11.0)
[2018-08-16 13:15] LABS: INR 1.7 INR; PROTHROMBIN TIME 16.8 SECONDS (9.0-12.0)
[2018-08-16 13:16] LABS: ALANINE AMINOTRANSFERASE 39 U/L (12-78); ALBUMIN 1.9 G/DL (3.4-5.0); ALBUMIN/GLOBULIN RATIO 0.4 (1.1-1.5); ALKALINE PHOSPHATASE 126 IU/L (46-116); ANION GAP 5 (8-16); ASPARTATE AMINO TRANSFERASE 35 U/L (10-37); BILIRUBIN,TOTAL 0.3 MG/DL (0.1-1.0); BLOOD UREA NITROGEN 34 MG/DL (7-18); BUN/CREATININE RATIO 9.7 (5.4-32.0); CALCIUM 7.5 MG/DL (8.5-10.1); CHLORIDE 98 MMOL/L (99-107); CREATININE 3.52 MG/DL (0.60-1.10); GLUCOSE 267 MG/DL (70-104); POTASSIUM 5.4 MMOL/L (3.5-5.1); SODIUM 132 MMOL/L (135-145); TOTAL CARBON DIOXIDE 28.6 MMOL/L (24-32); eGFR 19 ML/MIN
[2018-08-16 13:53] LABS: CLARITY,URINE TURBID (Clear); COLOR,URINE YELLOW (Yellow); GLUCOSE, URINE NEGATIVE (Neg); KETONES,URINE NEGATIVE (Neg); LEUKOCYTE ESTERASE ,URINE TRACE (Neg); NITRITES, URINE NEGATIVE (Neg); OCCULT BLOOD,URINE LARGE (Neg); PH,URINE 6.5 (4.8-8.0); PROTEIN,URINE >=300 mg/dl (Neg); UROBILINOGEN,URINE 0.2 E.U/dL (0.2-1.0)
[2018-08-16 13:55] LABS: UA COLLECTION TYPE FOLEY CATH
[2018-08-16 14:07] LABS: MUCUS STRANDS NONE SEEN /LPF (Neg); SQUAMOUS EPITHELIAL CELL,UR FEW /LPF (FEW); TRANSITIONAL EPI CELLS,URINE FEW /HPF
[2018-08-16 14:08] LABS: BACTERIA,URINE 4+ /HPF (Neg); HYALINE CASTS 0-3 /LPF (NEGATIVE); RBC,URINE 50-100 /HPF (0-2); WBC,URINE 0-4 /HPF (0-4); YEAST FEW /HPF (NEGATIVE)
[2018-08-16 14:17] VITALS: BP 150/98
== END 2018-08-16 14:19 | disposition home or self-care (01) ==
LOC: ER 12:16
DX: J90 Pleural effusion, not elsewhere classified (principal); I12.0 Hypertensive chronic kidney disease with stage 5 chronic kidney disease or end stage renal disease; E10.22 Type 1 diabetes mellitus with diabetic chronic kidney disease; N18.6 End stage renal disease; F15.10 Other stimulant abuse, uncomplicated; R06.01 Orthopnea; G89.29 Other chronic pain; Z99.2 Dependence on renal dialysis; Z79.4 Long term (current) use of insulin; Z86.14 Personal history of Methicillin resistant Staphylococcus aureus infection; Z90.49 Acquired absence of other specified parts of digestive tract; Z88.8 Allergy status to other drugs, medicaments and biological substances; Z59.0 Homelessness; Z56.0 Unemployment, unspecified
CPT/HCPCS: 36415; 51702; 71046; 80053; 81001; 82948; 85025; 85610; 87088; 87186; 93005; 99285

== ENCOUNTER 2018-08-24 08:24 | Day surgery (SDC) | payer MEDICARE, MEDICAID ==
[~2018-08-24] VITALS: Ht 170.2 cm; Wt 49.5 kg
[~2018-08-24 08:24] MED LIST changes: -LISI40TA4 PO
[2018-08-24 08:59] VITALS: BP 143/84
[2018-08-24] MEDS ORDERED: LIDOcaine 1% (10mg/ml)w/preservative injection 20ml MDV SQ ONE (09:15)
[2018-08-24] MEDS ORDERED: LIDOcaine 1% 30ml preserv. free vial SQ ONE (09:15)
[2018-08-24] MEDS ORDERED: ONDA4TAB12 PO (09:41)
[2018-08-24] MEDS ORDERED: ONDA4TAB11 PO (09:42)
[2018-08-24 10:15] VITALS: BP 153/85
[2018-08-24 11:02] VITALS: BP 133/78
[2018-08-24 11:15] VITALS: BP 155/96
[2018-08-24 11:30] VITALS: BP 160/98
== END 2018-08-24 11:40 | disposition home or self-care (01) ==
LOC: SSTAY O 08:24
PROVIDERS: ATTEND Radiology Vascular & Interventional Radiology
DX: J90 Pleural effusion, not elsewhere classified (principal); D64.9 Anemia, unspecified; E11.22 Type 2 diabetes mellitus with diabetic chronic kidney disease; I12.9 Hypertensive chronic kidney disease with stage 1 through stage 4 chronic kidney disease, or unspecified chronic kidney disease; N18.9 Chronic kidney disease, unspecified; Z86.19 Personal history of other infectious and parasitic diseases; Z86.14 Personal history of Methicillin resistant Staphylococcus aureus infection; Z99.2 Dependence on renal dialysis; Z88.8 Allergy status to other drugs, medicaments and biological substances; Z90.49 Acquired absence of other specified parts of digestive tract; Z98.890 Other specified postprocedural states; Z79.899 Other long term (current) drug therapy
CPT/HCPCS: 32555; 71045; J3490